=== PATIENT | male | born 1950 | race Caucasian/White ===

== ENCOUNTER 2021-02-23 07:12 | Emergency (ER) | payer BC, MEDICARE ==
[~2021-02-23] VITALS: Ht 177.8 cm; Wt 72.7 kg
[2021-02-23] MEDS ORDERED: IV NORMAL SALINE 1000ML BAG 1,000 ML IV SCH (08:15)
--- NOTE | 2021-02-23 08:39 | RAD ---
INDICATION: Reason: abd pain / Spl. Instructions: / History: COMPARISON: None. FINDINGS: Single view of chest obtained. Cardiomediastinal silhouette is unremarkable. Angulation of some of the right lower ribs including th e eighth, ninth and 10th again seen and could be from old fracture. Nodular opacities at chest bases. No definite consolidation elsewhere in the lungs. Nodular opacities at the bilateral lower lung coul d be secondary to overlap of structures IMPRESSION: * Similar appearance of the chest compared to prior without a new region of consolidation. Electronically signed by: Montrell Zamora MD (02/23/2021 8:37 AM) [id number]
[2021-02-23 08:40] LABS: BASO # 0.1 x10^3/uL (0.0-0.2); BASO % 1 % (0-3); EOS # 0.7 x10^3/uL (0.0-0.7); EOS % 7 % (0-3); HEMATOCRIT 41.9 % (39.0-53.0); HEMOGLOBIN 14.1 g/dL (13.0-17.5); LYMPH # 0.8 x10^3/uL (1.0-4.8); LYMPH % 9 % (24-48); MEAN CORPUSCULAR HEMOGLOBIN 34 pg (25-35); MEAN CORPUSCULAR HGB CONC 34 g/dL (31-37); MEAN CORPUSCULAR VOLUME 100 fL (79-100); MONO % 10 % (0-9); NEUT % 73 % (31-73); PLATELET COUNT 254 x10^3/uL (140-400); RED BLOOD COUNT 4.21 x10^6/uL (4.30-5.70); RED CELL DISTRIBUTION WIDTH 13.3 % (11.5-14.5); WHITE BLOOD COUNT 9.5 x10^3/uL (4.0-11.0)
[2021-02-23 08:42] LABS: BILIRUBIN,URINE NEGATIVE (NEG); CLARITY,URINE CLEAR; COLOR,URINE YELLOW; NITRITE,URINE NEGATIVE (NEG); PH,URINE 7.5 (<5.0-8.0); PROTEIN,URINE NEGATIVE (NEG-TRACE)
[2021-02-23 08:51] LABS: CALCIUM 8.2 mg/dL (8.5-10.1); CREATININE 0.8 mg/dL (0.7-1.3); GFR 95.8; POTASSIUM 3.8 mmol/L (3.5-5.1)
[2021-02-23 08:52] LABS: BACTERIA,URINE 0 /HPF (0-FEW); BARBITURATES NEG (NEG); BENZODIAZEPINES NEG (NEG); CANNABINOIDS NEG (NEG); COCAINE NEG (NEG); METHADONE NEG (NEG); OPIATES POS (NEG); PHENCYCLIDINE NEG (NEG); RBC,URINE 0 /HPF (0-2); WBC,URINE OCC /HPF (0-4)
[2021-02-23 08:58] LABS: ALBUMIN 3.6 g/dL (3.4-5.0); DIRECT BILIRUBIN 0.3 mg/dL (0.0-0.2); TOTAL BILIRUBIN 1.2 mg/dL (0.2-1.0); TOTAL PROTEIN 7.4 g/dL (6.4-8.2)
[2021-02-23 08:59] LABS: AMPHETAMINE/METHAMPHETAMINE NEG (NEG)
--- NOTE | 2021-02-23 10:53 | PHYS DOC ---
Past Medical History Past Medical History: Diverticulitis, GERD Additional Past Medical Histor: RA, HERNIA, Past Surgical History: Other Additional Past Surgical Histo: HERNIA REPAIR, SINUS SURGERY, Smoking Status: Current Every Day Smoker Alcohol Use: Occasionally General Adult EDM: Chief Complaint: ABDOMINAL PAIN HPI: HPI: 70-year-old male presents the ED with his (who aids in providing history), complaints of vague upper abdominal pain and is concerned this is a complication from his prior admission ([facility] )after history of complicated diverticulitis with abscess such that patient developed a fistula. Patient was discharged approximately 10 days ago and is on oral antibiotics. Review of Systems: Review of Systems: Constitutional: Denies fever or chills. [] Eyes: Denies change in visual acuity. [] HENT: Denies nasal congestion or sore throat. [] Respiratory: Denies cough or shortness of breath or hemoptysis Cardiovascular: Denies chest pain or edema. [] GI: Denies nausea, vomiting, bloody stools or diarrhea. [] : Denies dysuria. [] Musculoskeletal: Denies back pain or joint pain. [] Integument: Denies rash or diaphoresis Neurologic: Denies headache, focal weakness or sensory changes. [] Endocrine: Denies polyuria or polydipsia. [] Lymphatic: Denies swollen glands. [] Psychiatric: Denies depression or anxiety. [] Heart Score: C/O Chest Pain: No Risk Factors: Risk Factors: DM, Current or recent (<one month) smoker, HTN, HLP, family history of CAD, obesity. Risk Scores: Score 0 - 3: 2.5% MACE over next 6 weeks - Discharge Home Score 4 - 6: 20.3% MACE over next 6 weeks - Admit for Clinical Observation Score 7 - 10: 72.7% MACE over next 6 weeks - Early Invasive Strategies Current Medications: Current Medications Medications (Trade) Dose Ordered Sig/Genevieve Start Time Stop Time Status Last Admin Dose Admin Sodium Chloride 1,000 ml @ 1,000 mls/hr Q1H 02/23/21 08:15 02/23/21 09:14 DC 02/23/21 08:19 1,000 MLS/HR Allergies: Allergies: Allergies Coded Allergies Type Severity Reaction Last Updated Verified Penicillins Allergy Intermediate 02/23/21 Yes Physical Exam: PE: Constitutional: Well developed, well nourished, no acute distress, non-toxic appearance. HENT: Normocephalic, atraumatic, Eyes: EOMI, conjunctiva normal, no discharge. Neck: Normal range of motion, supple, Cardiovascular: S1/2 present, regular rhythm Lungs & Thorax: Speaking in full sentences, bilateral equal chest rise, no tachypnea or increased work of breathing Abdomen: soft, no tenderness, no rigidity or guarding or peritonitis Skin: Warm, dry, no erythema, no rash. [] Back: No tenderness, no CVA tenderness. [] Extremities: No tenderness, no cyanosis, no lower extremity edema Neurologic: Alert and oriented X 3, normal motor function, normal sensory function, no focal deficits noted. [] Psychologic: Affect normal, judgement normal, mood normal. [] Current Patient Data: Labs: Laboratory Tests Test 02/23/21 07:20 02/23/21 07:30 Urine Collection Type Unknown Urine Color Yellow Urine Clarity Clear Urine pH 7.5 (<5.0-8.0) Urine Specific Kite 1.015 (1.000-1.030) Urine Protein Negative mg/dL (NEG-TRACE) Urine Glucose (UA) Negative mg/dL (NEG) Urine Ketones (Stick) Negative mg/dL (NEG) Urine Blood Negative (NEG) Urine Nitrite Negative (NEG) Urine Bilirubin Negative (NEG) Urine Urobilinogen Dipstick 1.0 mg/dL (0.2 mg/dL) Urine Leukocyte Esterase Negative (NEG) Urine RBC 0 /HPF (0-2) Urine WBC Occ /HPF (0-4) Urine Squamous Epithelial Cells Occ /LPF Urine Bacteria 0 /HPF (0-FEW) Urine Mucus Mod /LPF Urine Opiates Screen Pos (NEG) Urine Methadone Screen Neg (NEG) Urine Barbiturates Neg (NEG) Urine Phencyclidine Screen Neg (NEG) Urine Amphetamine/Methamphetamine Neg (NEG) Urine Benzodiazepines Screen Neg (NEG) Urine Cocaine Screen Neg (NEG) Urine Cannabinoids Screen Neg (NEG) Urine Ethyl Alcohol Neg (NEG) White Blood Count 9.5 x10^3/uL (4.0-11.0) Red Blood Count 4.21 x10^6/uL (4.30-5.70) L Hemoglobin 14.1 g/dL (13.0-17.5) Hematocrit 41.9 % (39.0-53.0) Mean Corpuscular Volume 100 fL (79-100) Mean Corpuscular Hemoglobin 34 pg (25-35) Mean Corpuscular Hemoglobin Concent 34 g/dL (31-37) Red Cell Distribution Width 13.3 % (11.5-14.5) Platelet Count 254 x10^3/uL (140-400) Neutrophils (%) (Auto) 73 % (31-73) Lymphocytes (%) (Auto) 9 % (24-48) L Monocytes (%) (Auto) 10 % (0-9) H Eosinophils (%) (Auto) 7 % (0-3) H Basophils (%) (Auto) 1 % (0-3) Neutrophils # (Auto) 7.0 x10^3/uL (1.8-7.7) Lymphocytes # (Auto) 0.8 x10^3/uL (1.0-4.8) L Monocytes # (Auto) 1.0 x10^3/uL (0.0-1.1) Eosinophils # (Auto) 0.7 x10^3/uL (0.0-0.7) Basophils # (Auto) 0.1 x10^3/uL (0.0-0.2) Prothrombin Time 12.0 SEC (11.7-14.0) Prothrombin Time INR 0.9 (0.8-1.1) Activated Partial Thromboplast Time 31 SEC (24-38) Sodium Level 140 mmol/L (136-145) Potassium Level 3.8 mmol/L (3.5-5.1) Chloride Level 103 mmol/L (98-107) Carbon Dioxide Level 29 mmol/L (21-32) Anion Gap 8 (6-14) Blood Urea Nitrogen 8 mg/dL (8-26) Creatinine 0.8 mg/dL (0.7-1.3) Estimated GFR (Cockcroft-Gault) 95.8 Glucose Level 86 mg/dL (70-99) Calcium Level 8.2 mg/dL (8.5-10.1) L Total Bilirubin 1.2 mg/dL (0.2-1.0) H Direct Bilirubin 0.3 mg/dL (0.0-0.2) H Aspartate Amino Transferase (AST) 14 U/L (15-37) L Alanine Aminotransferase (ALT) 15 U/L (16-63) L Alkaline Phosphatase 76 U/L (46-116) Creatine Kinase 38 U/L (39-308) L Troponin I Quantitative < 0.017 ng/mL (0.000-0.055) Total Protein 7.4 g/dL (6.4-8.2) Albumin 3.6 g/dL (3.4-5.0) Lipase 68 U/L (73-393) L Laboratory Tests 02/23/21 07:30 Laboratory Tests 02/23/21 07:30 Vital Signs: Vital Signs Date Time Temp Pulse Resp B/P (MAP) Pulse Ox O2 Delivery O2 Flow Rate FiO2 02/23/21 07:17 98.7 62 18 113/64 (80) 97 Room Air 98.7 EKG: EKG: Sinus rhythm 59 bpm, left axis deviation, normal intervals, T wave inversion in lead III and V5, no ST elevations or ST depressions Radiology/Procedures: Radiology/Procedures: IMAGING REPORT Signed PATIENT: DENVER LADD ACCOUNT: [id number] : 1950 LOCATION: ER AGE: 70 SEX: M EXAM STATUS: REG ER ORD. PHYSICIAN: NELSY PAGE DO REASON: abd pain PROCEDURE: PORTABLE CHEST 1V INDICATION: Reason: abd pain / Spl. Instructions: / History: COMPARISON: None. FINDINGS: Single view of chest obtained. Cardiomediastinal silhouette is unremarkable. Angulation of some of the right lower ribs including the eighth, ninth and 10th again seen and could be from old fracture. Nodular opacities at chest bases. No definite consolidation elsewhere in the lungs. Nodular opacities at the bilateral lower lung could be secondary to overlap of structures IMPRESSION: * Similar appearance of the chest compared to prior without a new region of consolidation. Electronically signed by: Henry Maddox MD (02/23/2021 8:37 AM) [id number] DICTATED and SIGNED BY: HENRY MADDOX MD DATE: 02/23/21 [id number] 0 IMAGING REPORT Signed PATIENT: WILBERTO,DENVER R ACCOUNT: [id number] : 1950 LOCATION: ER AGE: 70 SEX: M EXAM STATUS: REG ER ORD. PHYSICIAN: NELSY PAGE DO REASON: abd pain PROCEDURE: CT ABD PELV W/ IV CONTRST ONLY PQRS Compliance Statement: One or more of the following individualized dose reduction techniques were utilized for this examination: 1. Automated exposure control 2. Adjustment of the mA and/or kV according to patient size 3. Use of iterative reconstruction technique CT abdomen/pelvis with contrast 02/23/2021 10:43 AM INDICATION: Abdominal pain COMPARISON: CT abdomen/pelvis 03/14/2020 TECHNIQUE: Multiple axial CT images of the abdomen and pelvis were obtained after the intravenous administration of 75 mL Omnipaque 300. Coronal and sagittal reformats are provided. FINDINGS: There is a 11 mm solid noncalcified pulmonary nodule in the subpleural posterior left lower lobe (series 2, image 5). Heart size within normal limits. Liver, spleen, adrenal glands, pancreas and gallbladder are normal in appearance. Abdominal aorta is tortuous, normal in caliber with moderate calcified atheromatous plaque. There are no pathologically enlarged lymph nodes in abdomen and pelvis. There is no free fluid or free intraperitoneal air. The kidneys enhance symmetrically. There is no suspicious renal mass. There is no hydronephrosis. There are no suspected calculi within the kidneys, ureters or urinary bladder. Mild bladder wall thickening identified along the superior margin of the bladder. Prostate and seminal vesicles are normal in appearance. There is circumferential wall thickening involving the rectosigmoid junction involving a long segment measuring up to 8.3 cm. There is advanced diverticulosis. There may be minimal inflammation along the left lateral distal sigmoid colon. Appendix is not definitively visualized. No pericecal inflammatory changes are identified. No significant mesorectal lymphadenopathy. No suspicious osseous abnormality is identified. IMPRESSION: Circumferential wall thickening with minimal associated inflammation identified involving the rectosigmoid junction in an area of diverticulosis. Consideration may be given for diverticulitis. Correlation with direct visualization could be of benefit to assess for mucosal mass given long segment of circumferential wall thickening. There is mild bladder wall thickening along the superior margin the bladder which could be chronic and associated with adjacent recurrent diverticulitis. Electronically signed by: Humberto Lawton MD (02/23/2021 11:30 AM) [id number] DICTATED and SIGNED BY: HUMBERTO LAWTON MD DATE: 02/23/21 [id number] 0 Course & Med Decision Making: Course & Med Decision Making Pertinent Labs and Imaging studies reviewed. (See chart for details) Lengthy ED stay and/or due to volume in ED, acuity of critical pts and ED staffing during a pandemic. The patient has decided to leave our facility against medical advice. I have assessed patient's ability to make informed decision and feel the patient has the capacity to comprehend information regarding the current medical condition and appreciates the impact of the disease or condition and the consequences of various options for treatment, including foregoing treatment. The patient possesses the ability to evaluate all treatment options, comparing the risks and benefits of each option, communicate his or her choice in a consistent manner over time, and is able to make rational choices. I explained to the patient further testing, treatment, and evaluation I would like to perform in the emergency department visit as well as any possible alternatives that can be accomplished in a timely manner. I have outlined the possible risks of foregoing any or all of these interventions and the patient understands and acknowledges that the decision to leave may result in undesirable consequences such as , permanent disability, and/or loss of current lifestyle. Even though leaving AMA is not ideal, pt still refused discharge papers. This conversation was witnessed by another member of the emergency department staff and we clearly communicated the patient is welcome to return anytime to continue care at our facility. Tommie Disclaimer: Tommie Disclaimer: This electronic medical record was generated, in whole or in part, using a voice recognition dictation system. Departure Departure Impression: Primary Impression: Abdominal pain Additional Impression: Left against medical advice Disposition: LEFT AGAINST MEDICAL ADVICE Condition: STABLE Referrals: VARGHESE HOWARD MD (PCP) NELSY PAGE DO February 23, 2021 10:52
[2021-02-23] MEDS ORDERED: CONTRAST GIVEN. MC PRN (11:00)
[2021-02-23] MEDS ORDERED: IOHEXOL 300 MG/ML 100ML VIAL. IV ONE (11:00)
--- NOTE | 2021-02-23 11:32 | RAD ---
PQRS Compliance Statement: One or more of the following individualized dose reduction techniques were utilized for this examinat ion: 1. Automated exposure control 2. Adjustment of the mA and/or kV according to patient size 3. Use of iterative reconstruction technique CT abdomen/pelvis with contrast 02/23/2021 10:43 AM INDICATION: Abdominal pain COMPARISON: CT abdomen/pelvis 03/14/2020 TECHNIQUE: Multiple axial CT images of the abdomen and pelvis were obtained after the intravenous adm inistration of 75 mL Omnipaque 300. Coronal and sagittal reformats are provided. FINDINGS: There is a 11 mm solid noncalcified pulmonary nodule in the subpleural posterior left lower lobe (ser ies 2, image 5). Heart size within normal limits. Liver, spleen, adrenal glands, pancreas and gallbladder are normal in appearance. Abdominal aorta is tortuous, normal in caliber with moderate calcified atheromatous plaque. There are no pathologically enlarged lymph nodes in abdomen and pelvis. There is no free fluid or free intraperitoneal air. The k idneys enhance symmetrically. There is no suspicious renal mass. There is no hydronephrosis. There ar e no suspected calculi within the kidneys, ureters or urinary bladder. Mild bladder wall thickening i dentified along the superior margin of the bladder. Prostate and seminal vesicles are normal in appea andrez. There is circumferential wall thickening involving the rectosigmoid junction involving a long segment measuring up to 8.3 cm. There is advanced diverticulosis. There may be minimal inflammation along th e left lateral distal sigmoid colon. Appendix is not definitively visualized. No pericecal inflammato ry changes are identified. No significant mesorectal lymphadenopathy. No suspicious osseous abnormality is identified. IMPRESSION: Circumferential wall thickening with minimal associated inflammation identified involving the rectosi gmoid junction in an area of diverticulosis. Consideration may be given for diverticulitis. Correlati on with direct visualization could be of benefit to assess for mucosal mass given long segment of cir cumferential wall thickening. There is mild bladder wall thickening along the superior margin the bladder which could be chronic an d associated with adjacent recurrent diverticulitis. Electronically signed by: Lucero Mejia MD (02/23/2021 11:30 AM) [id number]
[2021-02-23 12:30] VITALS: BP 120/76
--- NOTE | 2021-02-23 17:43 | EKG ---
[facility] [address] [place] [address] Test Date: 2021-02-23 Test Time: 08:22:37 Pat Name: DENVER LADD Department: Room: Gender: M Wood Chopper: : 1950 Requested By: NELSY PAGE Order Number: [id number] Reading MD: Measurements Intervals [place] Rate: 59 P: 66 CA: 158 QRS: -46 QRSD: 82 T: -25 QT: 396 QTc: 396 Interpretive Statements SINUS RHYTHM ABNORMAL LEFT AXIS DEVIATION LOW LIMB LEAD VOLTAGE QRS(T) CONTOUR ABNORMALITY CONSISTENT WITH ANTEROSEPTAL INFARCT PROBABLY OLD ABNORMAL ECG RI6.02 No previous ECG available for comparison
== END 2021-02-23 13:05 | disposition left against medical advice (07) ==
LOC: ER 07:12
DX: R10.10 Upper abdominal pain, unspecified (principal); K21.9 Gastro-esophageal reflux disease without esophagitis; F17.200 Nicotine dependence, unspecified, uncomplicated; Z88.0 Allergy status to penicillin
CPT/HCPCS: 36415; 71045; 74177; 80048; 80076; 80307; 81001; 82550; 83690; 84484; 85025; 85610; 85730; 93005; 96360; 99285; J7030; Q9967

== ENCOUNTER → 2021-04-01 | Day surgery (SDC) | payer BC, MEDICARE ==
[~2021-04-01] VITALS: Ht 180.3 cm; Wt 151.0 kg
[~2021-04-01] MED LIST: FAMO40TA57 PO; IV RINGERS,LACTATED 1000ML 1,000 ML IV ONE; IV RINGERS,LACTATED 1000ML 1,000 ML IV SCH; LIDOCAINE 2% PF 5 ML VIAL. ONE; PANT20TA2 PO; PROPOFOL 10 MG/ML (20ML) VIAL. IV ONE; TAMS0.4C97 PO; [UNRECOGNIZED DRUG - CODE] SQ
[2021-04-01 06:53] VITALS: BP 124/70
[2021-04-01 08:28] VITALS: BP 134/62
--- NOTE | 2021-04-02 17:43 | PATHOLOGY ---
[facility] Accession Number: [id number] . 01 Material submitted: . stomach - GASTRIC BIOPSY. Modifiers: GASTRIC . 01 Clinical history: . ABDOMINAL PAIN EGD EPI, PAIN . 02 Diagnosis: Gastric biopsies: - Superficial congestion and no significant inflammation. (JPM:pit; 04/02/2021) [facility] 04/02/2021 1402 Local . 02 Comment: Sections of the gastric biopsy reveal segments of gastric body and antral/body transition mucosa showing superficial congestion. There is no significant inflammation. A properly controlled immunoperoxidase stain for Helicobacter is negative for Helicobacter organisms. (JPM:pit; 04/02/2021) . Special stain performed: Immunoperoxidase stain for Helicobacter . 02 Electronically signed: . Mac Lucas MD, Pathologist NPI- [id number] . 01 Gross description: . Received in formalin labeled "Andrew Jurado and gastric biopsy". Received are 4 joel-brown soft tissue fragments ranging from 0.3-0.4 cm. The specimen is entirely submitted in cassette A1.([facility]; 04/01/2021) [facility] 04/01/2021 2018 Local . 02 Pathologist provided ICD-10: R10.9 . 02 CPT . 914874, G84611 Specimen Comment: A courtesy copy of this report has been sent to [phone], [phone] Specimen Comment: [id number] Specimen Comment: Report sent to / DR HOWARD Performed at: 01 [facility] [address], [place], [place] [id number] MD Beau Browning MD Phone: [phone] Performed at: [facility] [address] [place], [place] [id number] MD Mac Lucas MD Phone: [phone]
== END | disposition home or self-care (01) ==
LOC: SURG 06:22
PROVIDERS: ATTEND Internal Medicine Gastroenterology
DX: R10.13 Epigastric pain (principal); R10.10 Upper abdominal pain, unspecified; K29.50 Unspecified chronic gastritis without bleeding; K31.89 Other diseases of stomach and duodenum; M06.9 Rheumatoid arthritis, unspecified; N40.0 Benign prostatic hyperplasia without lower urinary tract symptoms; F17.210 Nicotine dependence, cigarettes, uncomplicated; Z79.899 Other long term (current) drug therapy; Z98.890 Other specified postprocedural states; Z72.89 Other problems related to lifestyle; Z88.0 Allergy status to penicillin
CPT/HCPCS: 43239; 88305; 88342; J2704; 43235

== ENCOUNTER 2021-05-26 08:11 | Day surgery (SDC) | payer BC, MEDICARE ==
[2021-05-25 09:40] VITALS: BP 134/62
[~2021-05-26] VITALS: Ht 177.8 cm; Wt 66.0 kg
[~2021-05-26 08:11] MED LIST changes: +HEPARIN 1,000 UNIT in IV NORMAL SALINE 1,000 ML for SURG PERIOP IRR ONE; +HYDROmorphone 2 MG/ML VIAL IVP PRN; -IV RINGERS,LACTATED 1000ML 1,000 ML IV ONE; -IV RINGERS,LACTATED 1000ML 1,000 ML IV SCH; -LIDOCAINE 2% PF 5 ML VIAL. ONE; +MORPHINE SULFATE 2 MG/ML INJ. IVP PRN; +MULT-121 PO; +PROCHLORPERAZINE 10 MG/2 ML VIAL. IVP PRN; -PROPOFOL 10 MG/ML (20ML) VIAL. IV ONE; +fentaNYL PF VIAL 100 MCG/2 ML VIAL IVP PRN
[2021-05-26 08:36] VITALS: BP 122/68
[2021-05-26] MEDS: IV RINGERS,LACTATED 1000ML 1,000 ML IV SCH ×2 (08:41→12:19)
--- NOTE | 2021-05-26 08:56 | PDOC1 ---
History and Physical Date of Admission Date of Admission DATE: 05/26/21 TIME: 08:50 Identification/Chief Complaint Chief Complaint epigastric abd pain Source Source: Chart review, Patient History of Present Illness History of Present Illness 70 yo M with c/o epigastric abd pain, intermittent. PIPPDA elevated with 95% ejection. Previous history of complicated diverticulitis, but this is currently quiet. Timbo diet, passing stools and urine without difficulty. Past Medical History Rheumatologic: Rheumatoid arthritis Renal/: Benign prostatic enlarg., Bladder Ca. Past Surgical History Past Surgical History: Appendectomy, Other (shoulder surgery) Family History Family History: Cancer Social History Smoke: 1 pack per day ALCOHOL: heavy Current Medications Current Medications Current Medications Heparin Sodium (Porcine) 1000 unit/Sodium Chloride 1,001 ml @ 1,001 mls/hr 1X ONCE IRR ; Start 05/26/21 at 06:00; Stop 05/26/21 at 06:59; Status DC Fentanyl Citrate (Fentanyl 2ml Vial) 25 mcg PRN Q5MIN PRN IVP MILD PAIN 1-3; Start 05/26/21 at 06:00; Stop 05/27/21 at 05:59 Fentanyl Citrate (Fentanyl 2ml Vial) 50 mcg PRN Q5MIN PRN IVP MODERATE PAIN 4- 6; Start 05/26/21 at 06:00; Stop 05/27/21 at 05:59 Morphine Sulfate (Morphine Sulfate) 1 mg PRN Q10MIN PRN IVP SEVERE PAIN 7-10; Start 05/26/21 at 06:00; Stop 05/27/21 at 05:59 Ringer's Solution 1,000 ml @ 30 mls/hr Q24H IV Last administered on 05/26/21at 08:41; Start 05/26/21 at 06:00; Stop 05/26/21 at 17:59 Hydromorphone HCl (Dilaudid) 0.5 mg PRN Q10MIN PRN IVP SEVERE PAIN 7-10, 2nd CHOICE; Start 05/26/21 at 06:00; Stop 05/27/21 at 05:59 Prochlorperazine Edisylate (Compazine) 5 mg PACU PRN PRN IVP NAUSEA, MRX1; Start 05/26/21 at 06:00; Stop 05/27/21 at 05:59 Cefazolin Sodium/ Dextrose 50 ml @ 100 mls/hr 1X PREOP PRN IV PRIOR TO PROCEDURE; Start 05/26/21 at 08:00; Stop 05/27/21 at 07:59 Active Scripts Active Reported Multiple Vitamins (Multivitamin) 1 Each Tablet 1 Tab PO DAILY 30 Days Pepcid (Famotidine) 40 Mg Tablet 40 Mg PO HS Protonix (Pantoprazole Sodium) 20 Mg Tablet.dr 20 Mg PO DAILY Enbrel (Etanercept) 25 Mg/0.5 Ml Vial 25 Mg SQ WEEKLY Flomax (Tamsulosin Hcl) 0.4 Mg Cap.er.24h 0.4 Mg PO DAILY Allergies Allergies: Coded Allergies: Penicillins (Verified Allergy, Intermediate, 05/26/21) ROS Gastrointestinal: Yes Abdominal Pain Physical Exam General: Alert, Cooperative, No acute distress HEENT: Atraumatic Lungs: Normal air movement Abdomen: Soft, Other (mild TTP epigastric) Extremities: No clubbing, No cyanosis Neuro: Normal speech, Sensation intact Psych/Mental Status: Mood NL Vitals Vitals Vital Signs Date Time Temp Pulse Resp B/P (MAP) Pulse Ox O2 Delivery O2 Flow Rate FiO2 05/26/21 08:36 98.1 51 20 97 98.1 05/26/21 08:26 122/68 Room Air VTE Prophylaxis Ordered VTE Prophylaxis Devices: Yes VTE Pharmacological Prophylaxi: Contraindicated Assessment/Plan Assessment/Plan biliary dyskinesia, epigastric abd pain TO OR for laparoscopic versus open exploration, cholecystectomy with cholangiogram. R/R/B/A d/w pt and pt's supportive family. Risks, including, but not limited to: bleeding, infection, damage to surrounding structures, risk of anesthesia, risk of open, risk of not resolving symptoms. They appear to understand, their questions are answered and they elect to proceed. Justifications for Admission Other Justification HAZEL BREWER MD May 26, 2021 08:56
--- NOTE | 2021-05-26 09:11 | EKG ---
[facility] [address] [place] [address] Test Date: 2021-05-26 Test Time: 09:10:26 Pat Name: DENVER LADD Department: Room: Gender: M Neurosurgical Nurse: DIPESH : 1950 Requested By: ASHLEE FONTAINE Order Number: [id number] Reading MD: Ulisses Art Measurements Intervals [place] Rate: 44 P: 90 ND: 166 QRS: -62 QRSD: 80 T: -47 QT: 474 QTc: 405 Interpretive Statements SINUS BRADYCARDIA ABNORMAL LEFT AXIS DEVIATION LOW LIMB LEAD VOLTAGE SEPTAL Q WAVE CONSISTENT WITH POSSIBLE OLD ANTEROSEPTAL INFARCT Electronically Signed On 05-26-2021 12:02:46 CDT by Ulisses Art
[2021-05-26] MEDS ORDERED: PROPOFOL 10 MG/ML (20ML) VIAL. IV ONE (09:46)
[2021-05-26] MEDS ORDERED: LIDOCAINE 2% PF 5 ML VIAL. ONE (09:46)
[2021-05-26] MEDS ORDERED: PHENYLEPHRINE in 0.9% NACL PF 1 MG/10 ML SYRINGE. IV ONE (09:46)
[2021-05-26] MEDS ORDERED: ONDANSETRON PF 4 MG/2 ML VIAL. ONE (09:46)
[2021-05-26] MEDS ORDERED: DEXAMETHASONE SOD PHOS 4 MG/ML VIAL ONE (09:46)
[2021-05-26] MEDS ORDERED: MIDAZOLAM HCL/PF 2 MG/2 ML VIAL. ONE (09:47)
[2021-05-26] MEDS ORDERED: ROCURONIUM 50 MG/5 ML VIAL. ONE (09:47)
[2021-05-26] MEDS ORDERED: NEOSTIGMINE METHYLSULFATE 5 MG/5 ML SYRINGE. ONE (09:47)
[2021-05-26] MEDS ORDERED: GLYCOPYRROLATE 1 MG/5 ML VIAL. ONE (09:48)
[2021-05-26] MEDS ORDERED: SURGICEL HEMOSTAT 4X8 EACH. ONE (10:08)
[2021-05-26] MEDS ORDERED: BUPIVACAINE-EPI 0.5%-1:200000 MPF 30 ML VIAL. ONE (10:08)
[2021-05-26] MEDS ORDERED: IOHEXOL 300 MG/ML 50 ML VIAL. ONE (10:08)
[2021-05-26] MEDS ORDERED: BISACODYL 10 MG SUPP.RECT. ONE (10:08)
[2021-05-26] MEDS ORDERED: KETOROLAC 30 MG/ML VIAL. ONE (10:11)
[2021-05-26] MEDS ORDERED: fentaNYL PF VIAL 100 MCG/2 ML VIAL ONE ×3 (10:11→12:38)
[2021-05-26] MEDS ORDERED: KETAMINE HCL IN NACL, ISO-OSM 50 MG/5 ML SYRINGE ONE (10:21)
[2021-05-26] MEDS ORDERED: ePHEDrine PF IN SALINE 50 MG/10 ML SYRINGE. IV ONE (10:27)
--- NOTE | 2021-05-26 11:18 | RAD ---
EXAM: INTRAOPERATIVE CHOLANGIOGRAM. HISTORY: Gallbladder disease. Intraoperative cholangiogram with cholecystectomy. COMPARISON: None. FINDINGS: 3 fluoroscopic images are obtained intraoperatively during injection of the cystic duct rem nant after cholecystectomy. There are no filling defects to suggest retained stones. The common duct is not dilated. Fluoroscopy time 0.1 minutes. IMPRESSION: 1. No evidence of retained stones. Electronically signed by: Shyla Butler MD (05/26/2021 11:16 AM) [id number]
[2021-05-26] MEDS ORDERED: NALOXONE 0.4 MG/ML VIAL. IV PRN (11:30)
[2021-05-26] MEDS ORDERED: DEXTROSE 50% 25 GM / 50ML DISP.SYRIN. IV PRN (11:30)
[2021-05-26] MEDS ORDERED: IV NORMAL SALINE 1000ML BAG 1,000 ML IV SCH (11:30)
[2021-05-26] MEDS ORDERED: IV RINGERS,LACTATED 1000ML 1,000 ML IV SCH (11:30)
[2021-05-26] MEDS ORDERED: 0.9 % SODIUM CHLORIDE 10 ML DISP.SYRIN. IV PRN (11:30)
[2021-05-26] MEDS ORDERED: ONDANSETRON PF 4 MG/2 ML VIAL. IVP PRN (11:30)
[2021-05-26] MEDS ORDERED: HYDROcodone/APAP 5/325MG 1 TAB TABLET PO PRN (11:30)
[2021-05-26] MEDS ORDERED: KETOROLAC 30 MG/ML VIAL. IV PRN (11:30)
[2021-05-26] MEDS ORDERED: PROCHLORPERAZINE 10 MG/2 ML VIAL. ONE (11:32)
--- NOTE | 2021-05-26 11:32 | PDOC4 ---
OPERATIVE NOTE Date: Date: May 26, 2021 Pre-Op Diagnosis: Biliary dyskinesia Post-Op Diagnosis: same chronic cholecystitis Procedure Performed: laparoscopic cholecystectomy with cholangiogram Surgeon: Severiano Brewer Anesthesia Type: GETA plus local Blood Loss: 50 Specimans Obtained: gallbladder Findings: no evidence of pathology in pelvis, evidence of BIH mesh repairs, chronic benign adhesions in epigastric associated with complex scar, but no bowel involvement, normal liver, chronic scarring of gallbladder, normal cholangiogram Complications: none Operative Note: After obtaining informed consent, patient was taken to OR, induced under GETA and prepped in the usual fashion. 5 mm port placed umbilical and RUQ, 12 port placed epigastric, all under laparoscopic guidance. Abdominal cavity was explored and noted as above. Gallbladder taken off fossa in dome down fashion. Cystic artery ligated with clips. Cholangiogram obtained via cystic duct only structure remaining and was normal. Cystic duct controlled with clips and hemolok. Gallbladder placed in bag, delivered and sent to pathology. Copious irrigation. No evidence of bleeding or other pathology noted. Ports removed without bleeding. Fascia repaired with 0 vicryl. Skin repaired with 4 0 monocryl. Dressing placed. Patient tolerated procedure well and sent to PACU in stable condition. All counts correct. Wound class is 3. HAZEL BREWER MD May 26, 2021 11:32
[2021-05-26] MEDS: fentaNYL PF VIAL 100 MCG/2 ML VIAL IVP PRN ×4 (11:41→13:18)
[2021-05-26] MEDS ORDERED: HYDROmorphone 2 MG/ML VIAL ONE (14:18)
[2021-05-26] MEDS ORDERED: HYDROcodone/APAP 5/325MG 1 TAB TABLET PO ONE (14:30)
[2021-05-26] MEDS ORDERED: DOCU-109 PO (14:50)
[2021-05-26] MEDS ORDERED: HYDR-2761 PO (14:50)
[2021-05-26 15:00] VITALS: BP 125/65
[2021-05-26] MEDS ORDERED: DOCUSATE SODIUM 100 MG CAPSULE. PO SCH (21:00)
--- NOTE | 2021-05-27 15:07 | PATHOLOGY ---
[facility] Accession Number: [id number] . 01 Material submitted: . gallbladder - GALLBLADDER . 01 Clinical history: . BILIARY DYSKINESIA LAP CHOLECYSTECTOMY . 02 Diagnosis: Gallbladder, laparoscopic cholecystectomy: - Chronic cholecystitis, mild. . ([facility]:mm; 05/27/2021) [facility] 05/27/2021 1355 Local . 02 Comment: There are no calculi identified within the gallbladder lumen or specimen container. Sections of the gallbladder show congestion and very mild chronic inflammation. There is no evidence of malignancy. . ([facility]:mml; 05/27/2021) . 02 Electronically signed: . Mac Lucas MD, Pathologist NPI- [id number] . 01 Gross description: . Fixative: Formalin Labeled: Gallbladder Specimen received: Intact gallbladder Dimensions: 6.8 x 3.4 x 2.8 cm Serosa: Anahola-diaz Lymph node: None identified Mucosa: Velvety, red-brown Average wall thickness: 0.1 cm Calculi: None present Abnormalities: None identified . A1- Front End Developer body, fundus, and the cystic duct margin. ([facility]; 05/26/2021) NRI/NRI 05/26/2021 1523 Local . 02 Pathologist provided ICD-10: K81.1 . 02 CPT . 352364 Specimen Comment: A courtesy copy of this report has been sent to [phone] Specimen Comment: Report sent to / DR HOWARD Performed at: 01 [facility] [address], [place], [place] [id number] MD Beau Browning MD Phone: [phone] Performed at: 02 [facility] [address] [place], [place] [id number] MD Mac Lucas MD Phone: [phone]
== END 2021-05-26 15:54 | disposition home or self-care (01) ==
LOC: SURG 08:11
PROVIDERS: ATTEND Surgery
DX: K82.8 Other specified diseases of gallbladder (principal); K81.1 Chronic cholecystitis; M06.9 Rheumatoid arthritis, unspecified; J43.9 Emphysema, unspecified; K21.9 Gastro-esophageal reflux disease without esophagitis; Z85.51 Personal history of malignant neoplasm of bladder; F17.210 Nicotine dependence, cigarettes, uncomplicated; Z79.899 Other long term (current) drug therapy; Z98.890 Other specified postprocedural states
CPT/HCPCS: 47563; 74300; 93005; A4213; A4314; A4930; A6219; C1887; J0690; J0780; J1100; J1170; J1644; J1885; J2250; J2370; J2405; J2704; J2710; J3010; J3490; J7030; Q9967

== ENCOUNTER 2022-02-23 19:55 | Inpatient (IN) | payer MEDICARE, BC ==
[~2022-02-23] VITALS: Ht 180.3 cm; Wt 80.0 kg
[~2022-02-23 19:55] MED LIST changes: +DOCU-109 PO; -HEPARIN 1,000 UNIT in IV NORMAL SALINE 1,000 ML for SURG PERIOP IRR ONE; +HYDR-2761 PO; -HYDROmorphone 2 MG/ML VIAL IVP PRN; -MORPHINE SULFATE 2 MG/ML INJ. IVP PRN; -PROCHLORPERAZINE 10 MG/2 ML VIAL. IVP PRN; -fentaNYL PF VIAL 100 MCG/2 ML VIAL IVP PRN
[2022-02-23 20:15] VITALS: BP 122/64
[2022-02-23] MEDS ORDERED: diphenhydrAMINE HCL 25 MG CAPSULE PO PRN (21:00)
[2022-02-23] MEDS: IV NORMAL SALINE 1000ML BAG 1,000 ML IV SCH (21:37)
[2022-02-23] MEDS: HYDROmorphone 2 MG/ML INJ. IVP PRN (21:38)
--- NOTE | 2022-02-23 22:25 | HP ---
DATE OF SERVICE: 02/23/2022 ADMIT DATE: 02/23/2022 CHIEF COMPLAINT: Perforated diverticula. HISTORY OF PRESENT ILLNESS: The patient is a pleasant middle-aged male who presented with perforated diverticulitis. He went to [facility], he has now been transferred here. We are consulting General Surgery and gave him IV antibiotics. PAST MEDICAL HISTORY: Diverticulosis, BPH, chronic pain, arthritis, constipation, GERD. ALLERGIES: PENICILLIN. FAMILY HISTORY: Diabetes. SOCIAL HISTORY: Does not drink, smoke or take drugs. MEDICATIONS: Reviewed. He is on Flomax, hydrocodone, Colace, Pepcid, Protonix, vitamins and Enbrel. REVIEW OF SYSTEMS: GENERAL: No history of weight change, weakness or fevers. SKIN: No bruising, hair changes or rashes. EYES: No blurred, double or loss of vision. NOSE AND THROAT: No history of nosebleeds, hoarseness or sore throat. HEART: No history of palpitations, chest pain or shortness of breath on exertion. LUNGS: Denies cough, hemoptysis, wheezing or shortness of breath. ABDOMEN: He complains of abdominal pain. GENITOURINARY: No history of frequency, urgency, hesitancy or nocturia. NEUROLOGIC: Denies history of numbness, tingling, tremor or weakness. PSYCHIATRIC: No history of panic, anxiety or depression. ENDOCRINE: No history of heat or cold intolerance, polyuria or polydipsia. EXTREMITIES: Denies muscle weakness, joint pain, pain on walking or stiffness. PHYSICAL EXAMINATION: VITALS: Within normal limits and are stable. GENERAL: No apparent distress. Alert and oriented. HEENT: Normal cephalic atraumatic, external auditory canals are patent EYES: Extraocular muscles are intact, pupils are equally round and reactive to light and accommodation MUSCULOSKELETAL: Well developed, well nourished, good range of motion ENDOCRINE: No thyromegaly was palpated LYMPHATICS: No cervical chain or axillary nodes were noted HEMATOPOIETIC: No bruising NECK: Supple, no JVD, no thyromegaly was noted. LUNGS: Clear to auscultation in all lung mosley without rhonchi or wheezing. HEART: RRR, S1, S2 present. Peripheral pulses intact, no obvious murmurs were noted. ABDOMEN: He has decreased bowel sounds with some slight tenderness to palpation. EXTREMITIES: Without any cyanosis, clubbing, or edema. Pedal pulses intact, Homans sign is negative. NEUROLOGIC: Normal speech, normal tone. A and O x 3, moves all extremities, no obvious focal deficits. PSYCHIATRIC: Normal affect, normal mood. Stable. SKIN: No ulcerations or rashes, good skin turgor, no jaundice. VASCULAR: Good capillary refill, neurovascular bundle appears to be intact. LABORATORY DATA: Pending. ASSESSMENT AND PLAN: Perforated diverticulitis. The patient has been admitted. We will consult General Surgery. IV antibiotics. IV fluids. P.r.n. Zofran. P.r.n. Dilaudid. Home meds when possible. Deep venous thrombosis prophylaxis. Full code. I discussed the case with his RN. WENDY/KELSEY/DIVYA DR: Marisa TID: [id number]
[2022-02-23] MEDS ORDERED: diphenhydrAMINE 50 MG/ML VIAL IM ONE (22:30)
[2022-02-24] MEDS: PIPERACILLIN/TAZOBACTAM 3.375 GM in IV NORMAL SALINE 50ML 50 ML IV SCH ×4 (01:00→17:32)
[2022-02-24 03:00] VITALS: BP 121/74
[2022-02-24] MEDS: IV NORMAL SALINE 1000ML BAG 1,000 ML IV SCH (03:28)
[2022-02-24 07:00] VITALS: BP 129/68
[2022-02-24] MEDS: TAMSULOSIN 0.4 MG CAP.ER.24H. PO SCH (08:12)
[2022-02-24] MEDS: HYDROmorphone 2 MG/ML INJ. IVP PRN ×3 (08:14→20:06)
[2022-02-24] MEDS ORDERED: PIP/TAZO PER PHARMACY MC PRN (09:00)
[2022-02-24 11:00] VITALS: BP 108/58
--- NOTE | 2022-02-24 11:09 | NUR ---
SS following for discharge planning. SS reviewed pt chart and discussed with pt RN. Pt is from home with spouse and is currently on room air. Pt on IV Zosyn. Dr. Timmons consulted. NPO. SS will continue to follow for discharge planning.
[2022-02-24] MEDS ORDERED: PROCHLORPERAZINE 10 MG/2 ML VIAL. IV PRN (11:45)
[2022-02-24] MEDS ORDERED: diphenhydrAMINE HCL 25 MG CAPSULE PO PRN (11:45)
[2022-02-24] MEDS ORDERED: LORazepam 0.5 MG TABLET PO PRN (11:45)
[2022-02-24] MEDS ORDERED: DOCUSATE SODIUM 100 MG CAPSULE. PO PRN (11:45)
[2022-02-24] MEDS ORDERED: diphenhydrAMINE 50 MG/ML VIAL IVP PRN ×2 (11:45→21:00)
[2022-02-24] MEDS ORDERED: ONDANSETRON PF 4 MG/2 ML VIAL. IVP PRN (11:45)
[2022-02-24] MEDS: ACETAMINOPHEN 325 MG TABLET. PO PRN ×2 (11:49→20:05)
[2022-02-24 15:00] VITALS: BP 113/59
--- NOTE | 2022-02-24 15:17 | PDOC ---
[facility] [facility] PROGRESS NOTE Date of Service DOS: DATE: 02/24/22 TIME: 15:16 Chief Complaint Chief Complaint Acute diverticulitis History of Present Illness History of Present Illness 71-year-old male with history of diverticulosis, BPH, chronic pain and arthritis who comes in with diverticulitis. Transferred from [facility] for general surgery consult. Admitted for further care and IV antibiotics. 02/24/2022 No acute events overnight. Patient seen examined bedside. AF and VSS. Abdominal exam is benign. Patient is passing flatus no bowel movement. We will try small mount of clears. Awaiting general surgery evaluation. Continue with IV antibiotics and IV fluids. Patient's chart, labs, images were reviewed and discussed with RN Vitals/I&O Vitals/I&O: Vital Signs Date Time Temp Pulse Resp B/P (MAP) Pulse Ox O2 Delivery O2 Flow Rate FiO2 02/24/22 11:00 98.0 67 16 108/58 (75) 94 98.0 02/24/22 08:14 Room Air I & O 02/23/22 02/23/22 02/24/22 15:00 23:00 07:00 Intake Total 100 ml Balance 100 ml Physical Exam General: Alert, Oriented X3, Cooperative Heart: Regular rate Lungs: Clear Abdomen: Normal bowel sounds, No tenderness Extremities: No clubbing Comment Review of Relevant I have reviewed the following items ramona (where applicable) has been applied. Medications: Current Medications Medications (Trade) Dose Ordered Sig/Genevieve Route PRN Reason Start Time Stop Time Status Last Admin Dose Admin Hydromorphone HCl (Dilaudid) 1 mg PRN Q2HR PRN IVP SEVERE PAIN 7-10 02/23/22 21:00 02/24/22 08:14 Sodium Chloride 1,000 ml @ 75 mls/hr [id number] IV 02/23/22 21:00 02/24/22 03:28 Tamsulosin HCl (Flomax) 0.4 mg DAILY PO 02/24/22 09:00 02/24/22 08:12 Piperacillin Sod/ Tazobactam Sod 3.375 gm/Sodium Chloride 50 ml @ 100 mls/hr Q6HRS IV 02/24/22 01:00 02/24/22 11:49 Acetaminophen (Tylenol) 650 mg PRN Q4HRS PRN PO TEMP OVER 100.4F OR MILD PAIN 5/11/22 11:45 02/24/22 11:49 Justifications for Admission Other Justification MORIAH OGDEN MD February 24, 2022 15:17
--- NOTE | 2022-02-24 15:27 | PDOC2 ---
CONSULT Date of Consult Date of Consult DATE: 02/24/22 TIME: 15:24 Reason for Consult Reason for Consult: Recurrent diverticulitis Referring Physician Referring Physician: Dr. Sorenson Identification/Chief Complaint Chief Complaint LLQ abd pain Source Source: Caregiver, Chart review, Patient History of Present Illness Reason for Visit: 71 yo M presents to [facility] with LLQ abd pain, hx of previous hospitalization for diverticulitis. Pt feels better today. No N/v, passing flatus. Past Medical History GI: Diverticulosis, GERD Rheumatologic: Rheumatoid arthritis Renal/: Benign prostatic enlarg., Bladder Ca. Past Surgical History Past Surgical History: Appendectomy, Cholecystectomy, Other (pylorplasty as child) Family History Family History: Cancer Social History No ALCOHOL: heavy Current Medications Current Medications Current Medications Hydromorphone HCl (Dilaudid) 1 mg PRN Q2HR PRN IVP SEVERE PAIN 7-10 Last administered on 02/24/22at 15:19; Start 02/23/22 at 21:00 Diphenhydramine HCl (Benadryl) 50 mg PRN QHS PRN PO INSOMNIA; Start 02/23/22 at 21:00; Status Cancel Sodium Chloride 1,000 ml @ 75 mls/hr [id number] IV Last administered on 02/24/22at 03:28; Start 02/23/22 at 21:00 Piperacillin Sod/ Tazobactam Sod (Zosyn Per Pharmacy) 1 each PRN DAILY PRN MC SEE COMMENTS; Start 02/24/22 at 09:00 Tamsulosin HCl (Flomax) 0.4 mg DAILY PO Last administered on 02/24/22at 08:12; Start 02/24/22 at 09:00 Non-Formulary Medication (Etanercept (Enbrel)) 25 mg WEEKLY SQ ; Start 02/26/22 at 09:00; Status UNV Diphenhydramine HCl (Benadryl) 50 mg HS IVP ; Start 02/24/22 at 21:00; Stop 02/24/22 at 00:00; Status DC Diphenhydramine HCl (Benadryl) 50 mg 1X ONCE IM ; Start 02/23/22 at 22:30; Stop 02/23/22 at 22:31; Status DC Diphenhydramine HCl (Benadryl) 50 mg PRN QHS PRN IVP INSOMNIA; Start 02/24/22 at 21:00 Piperacillin Sod/ Tazobactam Sod 3.375 gm/Sodium Chloride 50 ml @ 100 mls/hr Q6HRS IV Last administered on 02/24/22at 11:49; Start 02/24/22 at 01:00 Sennosides (Senna) 17.2 mg PRN BID PRN PO CONSTIPATION; Start 02/24/22 at 11:45 Docusate Sodium (Colace) 100 mg PRN DAILY PRN PO HARD STOOLS; Start 02/24/22 at 11:45 Ondansetron HCl (Zofran) 4 mg PRN Q6HRS PRN IVP NAUSEA/VOMITING, 1st CHOICE; Start 02/24/22 at 11:45 Acetaminophen (Tylenol) 650 mg PRN Q4HRS PRN PO TEMP OVER 100.4F OR MILD PAIN Last administered on 02/24/22at 11:49; Start 02/24/22 at 11:45 Lorazepam (Ativan) 0.5 mg PRN Q6HRS PRN PO ANXIETY / AGITATION; Start 02/24/22 at 11:45 Lorazepam (Ativan Inj) 0.25 mg PRN Q4HRS PRN IV ANXIETY / AGITATION; Start 02/24/22 at 11:45 Prochlorperazine Edisylate (Compazine) 10 mg PRN Q6HRS PRN IV NAUSEA/VOMITING, 2nd CHOICE; Start 02/24/22 at 11:45 Diphenhydramine HCl (Benadryl) 25 mg PRN Q6HRS PRN IVP ITCHING; Start 02/24/22 at 11:45 Diphenhydramine HCl (Benadryl) 25 mg PRN Q6HRS PRN PO ITCHING; Start 02/24/22 at 11:45 Diphenhydramine HCl (Benadryl) 25 mg PRN QHS PRN PO INSOMNIA, 1st CHOICE; Start 02/24/22 at 11:45 Zolpidem Tartrate (Ambien) 2.5 mg PRN QHS PRN PO INSOMNIA, 2nd CHOICE; Start 02/24/22 at 11:45 Active Scripts Active Reported Colace (Docusate Sodium) 100 Mg Capsule 1 Cap PO BID 30 Days Hydrocodone-Apap 5-325 (Hydrocodone Bit/Acetaminophen) 1 Tab Tablet 1 Tab PO PRN PRN Multiple Vitamins (Multivitamin) 1 Each Tablet 1 Tab PO DAILY 30 Days Pepcid (Famotidine) 40 Mg Tablet 40 Mg PO HS Protonix (Pantoprazole Sodium) 20 Mg Tablet.dr 20 Mg PO DAILY Enbrel (Etanercept) 25 Mg/0.5 Ml Vial 25 Mg SQ WEEKLY Flomax (Tamsulosin Hcl) 0.4 Mg Cap.er.24h 0.4 Mg PO DAILY Allergies Allergies: Coded Allergies: Penicillins (Verified Allergy, Intermediate, 05/26/21) ROS Gastrointestinal: Yes Abdominal Pain, Yes Constipation Physical Exam General: Alert, Oriented X3, Cooperative, No acute distress HEENT: Atraumatic Lungs: Normal air movement Abdomen: Soft, No tenderness Extremities: No clubbing, No cyanosis Skin: No rashes, No breakdown Neuro: Normal speech, Sensation intact Psych/Mental Status: Mental status NL, Mood NL Vitals VITALS Vital Signs Date Time Temp Pulse Resp B/P (MAP) Pulse Ox O2 Delivery O2 Flow Rate FiO2 02/24/22 11:00 98.0 67 16 108/58 (75) 94 98.0 02/24/22 08:14 Room Air Images Images [facility] at [facility] c/w diverticulitis Assessment/Plan Assessment/Plan Diverticulitis appears improved, will start soft, cont abx. no current surgical plans. Thanks for consult! HAZEL BREWER MD February 24, 2022 15:27
[2022-02-24 19:00] VITALS: BP 118/60
[2022-02-24] MEDS ORDERED: diphenhydrAMINE 50 MG/ML VIAL IVP SCH (21:00)
[2022-02-25] MEDS: PIPERACILLIN/TAZOBACTAM 3.375 GM in IV NORMAL SALINE 50ML 50 ML IV SCH ×5 (00:22→23:39)
[2022-02-25] MEDS: IV NORMAL SALINE 1000ML BAG 1,000 ML IV SCH ×2 (00:23→17:29)
[2022-02-25] MEDS: HYDROmorphone 2 MG/ML INJ. IVP PRN ×4 (06:03→21:59)
[2022-02-25 07:00] VITALS: BP 129/63
[2022-02-25 07:33] LABS: BASO # 0.1 x10^3/uL (0.0-0.2); BASO % 1 % (0-3); EOS # 0.1 x10^3/uL (0.0-0.7); EOS % 1 % (0-3); HEMATOCRIT 37.6 % (39.0-53.0); LYMPH # 0.5 x10^3/uL (1.0-4.8); LYMPH % 6 % (24-48); MEAN CORPUSCULAR HEMOGLOBIN 34 pg (25-35); MEAN CORPUSCULAR HGB CONC 34 g/dL (31-37); MEAN CORPUSCULAR VOLUME 100 fL (79-100); MONO # 0.6 x10^3/uL (0.0-1.1); MONO % 8 % (0-9); NEUT # 6.8 x10^3/uL (1.8-7.7); NEUT % 84 % (31-73); PLATELET COUNT 223 x10^3/uL (140-400); RED BLOOD COUNT 3.76 x10^6/uL (4.30-5.70); RED CELL DISTRIBUTION WIDTH 12.8 % (11.5-14.5); WHITE BLOOD COUNT 8.1 x10^3/uL (4.0-11.0)
[2022-02-25 07:50] LABS: CALCIUM 7.9 mg/dL (8.5-10.1); CREATININE 0.9 mg/dL (0.7-1.3); GFR 83.4; MAGNESIUM 1.8 mg/dL (1.8-2.4); PHOSPHORUS 2.7 mg/dL (2.6-4.7); POTASSIUM 4.1 mmol/L (3.5-5.1)
[2022-02-25] MEDS: TAMSULOSIN 0.4 MG CAP.ER.24H. PO SCH (08:34)
--- NOTE | 2022-02-25 09:20 | PDOC ---
GONZALO CARLISLE [employer] 02/25/22 0920: SURGICAL PROGRESS NOTE DATE: 02/25/22 TIME: 09:18 Subjective had more pain no nausea no fevers ROS: no chest pain, no SOA no cough Vital Signs Vital Signs Date Time Temp Pulse Resp B/P (MAP) Pulse Ox O2 Delivery O2 Flow Rate FiO2 02/25/22 07:00 98.2 60 18 129/63 (85) 93 Room Air 98.2 I&O Intake and Output 02/25/22 07:00 Intake Total 1538 ml Balance 1538 ml Intake Oral 840 ml IV Total 698 ml General: Alert, Oriented X3, Cooperative HEENT: Atraumatic, PERRLA Lungs: Clear to auscultation, Normal air movement Heart: Regular rate, Normal S1, Normal S2 Abdomen: Soft, Other (mild ttp lower abdomen ) Labs Laboratory Tests Test 02/25/22 06:30 White Blood Count 8.1 x10^3/uL (4.0-11.0) Red Blood Count 3.76 x10^6/uL (4.30-5.70) Hemoglobin 13.0 g/dL (13.0-17.5) Hematocrit 37.6 % (39.0-53.0) Mean Corpuscular Volume 100 fL (79-100) Mean Corpuscular Hemoglobin 34 pg (25-35) Mean Corpuscular Hemoglobin Concent 34 g/dL (31-37) Red Cell Distribution Width 12.8 % (11.5-14.5) Platelet Count 223 x10^3/uL (140-400) Neutrophils (%) (Auto) 84 % (31-73) Lymphocytes (%) (Auto) 6 % (24-48) Monocytes (%) (Auto) 8 % (0-9) Eosinophils (%) (Auto) 1 % (0-3) Basophils (%) (Auto) 1 % (0-3) Neutrophils # (Auto) 6.8 x10^3/uL (1.8-7.7) Lymphocytes # (Auto) 0.5 x10^3/uL (1.0-4.8) Monocytes # (Auto) 0.6 x10^3/uL (0.0-1.1) Eosinophils # (Auto) 0.1 x10^3/uL (0.0-0.7) Basophils # (Auto) 0.1 x10^3/uL (0.0-0.2) Sodium Level 135 mmol/L (136-145) Potassium Level 4.1 mmol/L (3.5-5.1) Chloride Level 100 mmol/L (98-107) Carbon Dioxide Level 25 mmol/L (21-32) Anion Gap 10 (6-14) Blood Urea Nitrogen 12 mg/dL (8-26) Creatinine 0.9 mg/dL (0.7-1.3) Estimated GFR (Cockcroft-Gault) 83.4 Glucose Level 87 mg/dL (70-99) Calcium Level 7.9 mg/dL (8.5-10.1) Phosphorus Level 2.7 mg/dL (2.6-4.7) Magnesium Level 1.8 mg/dL (1.8-2.4) Laboratory Tests Test 02/25/22 06:30 White Blood Count 8.1 x10^3/uL (4.0-11.0) Red Blood Count 3.76 x10^6/uL (4.30-5.70) Hemoglobin 13.0 g/dL (13.0-17.5) Hematocrit 37.6 % (39.0-53.0) Mean Corpuscular Volume 100 fL (79-100) Mean Corpuscular Hemoglobin 34 pg (25-35) Mean Corpuscular Hemoglobin Concent 34 g/dL (31-37) Red Cell Distribution Width 12.8 % (11.5-14.5) Platelet Count 223 x10^3/uL (140-400) Neutrophils (%) (Auto) 84 % (31-73) Lymphocytes (%) (Auto) 6 % (24-48) Monocytes (%) (Auto) 8 % (0-9) Eosinophils (%) (Auto) 1 % (0-3) Basophils (%) (Auto) 1 % (0-3) Neutrophils # (Auto) 6.8 x10^3/uL (1.8-7.7) Lymphocytes # (Auto) 0.5 x10^3/uL (1.0-4.8) Monocytes # (Auto) 0.6 x10^3/uL (0.0-1.1) Eosinophils # (Auto) 0.1 x10^3/uL (0.0-0.7) Basophils # (Auto) 0.1 x10^3/uL (0.0-0.2) Sodium Level 135 mmol/L (136-145) Potassium Level 4.1 mmol/L (3.5-5.1) Chloride Level 100 mmol/L (98-107) Carbon Dioxide Level 25 mmol/L (21-32) Anion Gap 10 (6-14) Blood Urea Nitrogen 12 mg/dL (8-26) Creatinine 0.9 mg/dL (0.7-1.3) Estimated GFR (Cockcroft-Gault) 83.4 Glucose Level 87 mg/dL (70-99) Calcium Level 7.9 mg/dL (8.5-10.1) Phosphorus Level 2.7 mg/dL (2.6-4.7) Magnesium Level 1.8 mg/dL (1.8-2.4) Problem List diverticulitis abx, bowel rest afebrile, normal wbc no surgical plans at this time Justicifation of Admission Dx: Justifications for Admission: Justification of Admission Dx: Yes Comments: diverticulitis HAZEL BREWER MD 02/25/22 1500: SURGICAL PROGRESS NOTE Assessment/Plan Pt seen and examined. Agree with Ms. Carlisle's note Pt with some mild pain abd soft, min TTP LLQ cont supportive care, appreciate GI evaluation GONZALO CARLISLE APRN February 25, 2022 09:20 HAZEL BREWER MD February 25, 2022 15:00
[2022-02-25] MEDS: ACETAMINOPHEN 325 MG TABLET. PO PRN (10:47)
[2022-02-25 11:00] VITALS: BP 132/70
--- NOTE | 2022-02-25 11:28 | PDOC ---
[facility] [facility] PROGRESS NOTE Date of Service DOS: DATE: 02/25/22 TIME: 11:26 Chief Complaint Chief Complaint Acute diverticulitis History of diverticulosis Tobacco use History of Present Illness History of Present Illness 71-year-old male with history of diverticulosis, BPH, chronic pain and arthritis who comes in with diverticulitis. Transferred from [facility] for general surgery consult. Admitted for further care and IV antibiotics. 02/24/2022 No acute events overnight. Patient seen examined bedside. AF and VSS. Abdom inal exam is benign. Patient is passing flatus no bowel movement. We will try small mount of clears. Awaiting general surgery evaluation. Continue with IV antibiotics and IV fluids. Patient's chart, labs, images were reviewed and discussed with RN 02/25/2022 No acute events overnight. Patient seen examined bedside. This morning had some more lower abdominal pain that was cramping in nature. This happened after he had some soft diet. I have transitioned back to clear liquid diet. Pending general surgery evaluation. Continued IV fluids and IV antibiotics. Patient endorses only passing some flatus and no bowel movement. Patient's chart, labs, images were reviewed and discussed with RN Vitals/I&O Vitals/I&O: Vital Signs Date Time Temp Pulse Resp B/P (MAP) Pulse Ox O2 Delivery O2 Flow Rate FiO2 02/25/22 08:00 Room Air 02/25/22 07:00 98.2 60 18 129/63 (85) 93 98.2 I & O 02/24/22 02/24/22 02/25/22 15:00 23:00 07:00 Intake Total 0 ml 998 ml 540 ml Balance 0 ml 998 ml 540 ml Physical Exam General: Alert, Oriented X3, Cooperative Heart: Regular rate, Normal S1, Normal S2 Lungs: Clear Abdomen: Soft, Other (mild ttp lower abdomen ) Extremities: No clubbing, No cyanosis Skin: No rashes, No breakdown Labs Labs: Laboratory Tests Test 02/25/22 06:30 White Blood Count 8.1 x10^3/uL (4.0-11.0) Red Blood Count 3.76 x10^6/uL (4.30-5.70) Hemoglobin 13.0 g/dL (13.0-17.5) Hematocrit 37.6 % (39.0-53.0) Mean Corpuscular Volume 100 fL (79-100) Mean Corpuscular Hemoglobin 34 pg (25-35) Mean Corpuscular Hemoglobin Concent 34 g/dL (31-37) Red Cell Distribution Width 12.8 % (11.5-14.5) Platelet Count 223 x10^3/uL (140-400) Neutrophils (%) (Auto) 84 % (31-73) Lymphocytes (%) (Auto) 6 % (24-48) Monocytes (%) (Auto) 8 % (0-9) Eosinophils (%) (Auto) 1 % (0-3) Basophils (%) (Auto) 1 % (0-3) Neutrophils # (Auto) 6.8 x10^3/uL (1.8-7.7) Lymphocytes # (Auto) 0.5 x10^3/uL (1.0-4.8) Monocytes # (Auto) 0.6 x10^3/uL (0.0-1.1) Eosinophils # (Auto) 0.1 x10^3/uL (0.0-0.7) Basophils # (Auto) 0.1 x10^3/uL (0.0-0.2) Sodium Level 135 mmol/L (136-145) Potassium Level 4.1 mmol/L (3.5-5.1) Chloride Level 100 mmol/L (98-107) Carbon Dioxide Level 25 mmol/L (21-32) Anion Gap 10 (6-14) Blood Urea Nitrogen 12 mg/dL (8-26) Creatinine 0.9 mg/dL (0.7-1.3) Estimated GFR (Cockcroft-Gault) 83.4 Glucose Level 87 mg/dL (70-99) Calcium Level 7.9 mg/dL (8.5-10.1) Phosphorus Level 2.7 mg/dL (2.6-4.7) Magnesium Level 1.8 mg/dL (1.8-2.4) Comment Review of Relevant I have reviewed the following items ramona (where applicable) has been applied. Medications: Current Medications Medications (Trade) Dose Ordered Sig/Genevieve Route PRN Reason Start Time Stop Time Status Last Admin Dose Admin Diphenhydramine HCl (Benadryl) 50 mg PRN QHS PRN IVP INSOMNIA 02/24/22 21:00 02/24/22 20:06 Acetaminophen (Tylenol) 650 mg PRN Q4HRS PRN PO TEMP OVER 100.4F OR MILD PAIN 02/24/22 11:45 02/25/22 10:47 Justifications for Admission Other Justification MORIAH OGDEN MD February 25, 2022 11:27
--- NOTE | 2022-02-25 13:33 | PDOC2 ---
SAMANTA THOMPSON 02/25/22 1333: GI CONSULT Date of Service: DATE: 02/25/22 TIME: 13:27 Reason For Consult: diverticulitis HPI: HPI: 71 y/o male seen w/ Dr. Lange. Ill for a couple weeks w/ lower abdominal discomfort, unable to eat and less frequent stooling at home. Sent from [facility] earlier this week for CT findings of sigmoid diverticulitis w/ perforation/early abscess. H/o perforated diverticulitis/abscess last year @ [facility]. Thinks had colonoscopy prior to this w/ Dr. Lange @ [facility]. indicates possible concern for bladder fistula? Recently has had some reflux symptoms - has taken H2 blockers and PPIs in past. Procedure report unavailable from EGD in 03/[address] Lange - path from gastric biopsy shows superficial congestion without significant inflammation, negative for H. pylori. S/p cholecystectomy - path w/ chronic cholecystitis, IOC negative. D/w nurse - was on GI soft diet, c/o increased pain, changed to NPO. PMH: PMH: RA on Enbrel, BPH cholecystectomy, pyloric stenosis surgery, sinus surgery, hernia repair FH: Family History: Other (nephew - pyloric stenosis) Social History: Smoke: <1 pack per day ALCOHOL: heavy Drugs: Marijuana ROS: GEN: Denies fevers, chills, sweats HEENT: Denies blurred vision, sore throat CV: Denies chest pain RESP: Denies shortness of air, cough GI: Per HPI : Denies hematuria, dysuria ENDO: +weight loss NEURO: Denies confusion, dizziness MSK: Denies weakness, joint pain/swelling SKIN: Denies jaundice, pruritus Vitals: Vitals: Vital Signs Date Time Temp Pulse Resp B/P (MAP) Pulse Ox O2 Delivery O2 Flow Rate FiO2 02/25/22 11:00 98.5 67 18 132/70 (90) 94 Room Air 98.5 Labs: Labs: Laboratory Tests Test 02/25/22 06:30 White Blood Count 8.1 x10^3/uL (4.0-11.0) Red Blood Count 3.76 x10^6/uL (4.30-5.70) Hemoglobin 13.0 g/dL (13.0-17.5) Hematocrit 37.6 % (39.0-53.0) Mean Corpuscular Volume 100 fL (79-100) Mean Corpuscular Hemoglobin 34 pg (25-35) Mean Corpuscular Hemoglobin Concent 34 g/dL (31-37) Red Cell Distribution Width 12.8 % (11.5-14.5) Platelet Count 223 x10^3/uL (140-400) Neutrophils (%) (Auto) 84 % (31-73) Lymphocytes (%) (Auto) 6 % (24-48) Monocytes (%) (Auto) 8 % (0-9) Eosinophils (%) (Auto) 1 % (0-3) Basophils (%) (Auto) 1 % (0-3) Neutrophils # (Auto) 6.8 x10^3/uL (1.8-7.7) Lymphocytes # (Auto) 0.5 x10^3/uL (1.0-4.8) Monocytes # (Auto) 0.6 x10^3/uL (0.0-1.1) Eosinophils # (Auto) 0.1 x10^3/uL (0.0-0.7) Basophils # (Auto) 0.1 x10^3/uL (0.0-0.2) Sodium Level 135 mmol/L (136-145) Potassium Level 4.1 mmol/L (3.5-5.1) Chloride Level 100 mmol/L (98-107) Carbon Dioxide Level 25 mmol/L (21-32) Anion Gap 10 (6-14) Blood Urea Nitrogen 12 mg/dL (8-26) Creatinine 0.9 mg/dL (0.7-1.3) Estimated GFR (Cockcroft-Gault) 83.4 Glucose Level 87 mg/dL (70-99) Calcium Level 7.9 mg/dL (8.5-10.1) Phosphorus Level 2.7 mg/dL (2.6-4.7) Magnesium Level 1.8 mg/dL (1.8-2.4) Allergies: Coded Allergies: Penicillins (Verified Allergy, Intermediate, 02/25/22) TOLERATES ZOSYN Medications: Current Medications Medications (Trade) Dose Ordered Sig/Genevieve Route PRN Reason Start Time Stop Time Status Last Admin Dose Admin Diphenhydramine HCl (Benadryl) 50 mg PRN QHS PRN IVP INSOMNIA 5/11/22 21:00 02/24/22 20:06 Imaging: Imaging: per HPI PE: GEN: NAD, [place] HEENT: Atraumatic, PERRL LUNGS: CTAB HEART: RRR ABD: NABS, S/ND, lower abd discomfort EXTREMITY: No edema SKIN: No rashes, no jaundice NEURO/PSYCH: A & O 3 A/P: A/P: Perforated diverticulitis - recurrent issue GERD CRC screen - reportedly UTD S/p cholecystectomy -- Will ask for PICC and TPN. Continue atbx. Will review previous 'scopes from [facility]. Add PPI. BRAXTON LANGE MD 02/25/22 1340: SAMANTA THOMPSON February 25, 2022 13:33 BRAXTON LANGE MD February 25, 2022 13:40
[2022-02-25] MEDS ORDERED: TPN PER PHARMACY MC PRN (13:45)
--- NOTE | 2022-02-25 14:36 | NUR ---
Pt refused PICC line placement. Joanne Cifuentes notified. Pharmacy notified. Will continue to monitor.
[2022-02-25 15:00] VITALS: BP 137/62
[2022-02-25 15:01] LABS: PROTHROMBIN TIME PATIENT 13.3 SEC (11.7-14.0)
[2022-02-25] MEDS: PANTOPRAZOLE IV PUSH 40 MG VIAL. IVP SCH (15:14)
[2022-02-25 19:00] VITALS: BP 124/66
[2022-02-25] MEDS ORDERED: TOTAL PARENTERAL NUTRITION 1,446.4667 ML, AMINO ACID 15% 60 GM, DEXTROSE 70 % IN WATER ... IV SCH (22:00)
[2022-02-25 23:03] VITALS: BP 133/92
[2022-02-26] MEDS: HYDROmorphone 2 MG/ML INJ. IVP PRN ×4 (04:20→21:38)
[2022-02-26] MEDS: IV NORMAL SALINE 1000ML BAG 1,000 ML IV SCH ×2 (05:32→23:37)
[2022-02-26] MEDS: PIPERACILLIN/TAZOBACTAM 3.375 GM in IV NORMAL SALINE 50ML 50 ML IV SCH ×4 (05:32→23:37)
[2022-02-26 05:40] LABS: BASO % 0 % (0-3); EOS # 0.2 x10^3/uL (0.0-0.7); EOS % 2 % (0-3); HEMATOCRIT 36.6 % (39.0-53.0); HEMOGLOBIN 12.4 g/dL (13.0-17.5); LYMPH # 0.7 x10^3/uL (1.0-4.8); LYMPH % 8 % (24-48); MEAN CORPUSCULAR HEMOGLOBIN 34 pg (25-35); MEAN CORPUSCULAR HGB CONC 34 g/dL (31-37); MEAN CORPUSCULAR VOLUME 100 fL (79-100); MONO % 11 % (0-9); NEUT # 6.8 x10^3/uL (1.8-7.7); NEUT % 78 % (31-73); PLATELET COUNT 219 x10^3/uL (140-400); RED BLOOD COUNT 3.68 x10^6/uL (4.30-5.70); RED CELL DISTRIBUTION WIDTH 12.6 % (11.5-14.5); WHITE BLOOD COUNT 8.7 x10^3/uL (4.0-11.0)
[2022-02-26 06:11] LABS: CALCIUM 7.9 mg/dL (8.5-10.1); CREATININE 0.8 mg/dL (0.7-1.3); GFR 95.6; MAGNESIUM 1.9 mg/dL (1.8-2.4); POTASSIUM 3.8 mmol/L (3.5-5.1)
[2022-02-26 07:00] VITALS: BP 139/83
[2022-02-26] MEDS: PANTOPRAZOLE IV PUSH 40 MG VIAL. IVP SCH (08:24)
[2022-02-26] MEDS: TAMSULOSIN 0.4 MG CAP.ER.24H. PO SCH (08:24)
[2022-02-26] MEDS ORDERED: ETANERCEPT 25 MG SQ SCH (09:00)
--- NOTE | 2022-02-26 10:11 | PDOC ---
GONZALO CARLISLE EXTRUDER TENDER 02/26/22 1011: SURGICAL PROGRESS NOTE DATE: 02/26/22 TIME: 10:08 Subjective ongoing abdominal pain, requiring IV medications frequently denies nausea major concern about constipation, asking about an enema upset plan is unclear, multiple people saying multiple things thinks should be feeling better in 4 days of being here ROS: no fevers, chills No SOA, cough no chest pain, palpations Vital Signs Vital Signs Date Time Temp Pulse Resp B/P (MAP) Pulse Ox O2 Delivery O2 Flow Rate FiO2 02/26/22 09:04 18 Room Air 02/26/22 07:00 98.0 64 139/83 (101) 94 98.0 I&O Intake and Output0 02/26/22 07:00 Intake Total 1724 ml Output Total 350 ml Balance 1374 ml IV Total 1724 ml Output Urine Total 350 ml General: Alert, Oriented X3, Cooperative Lungs: Clear to auscultation Heart: Regular rate, Normal S1, Normal S2 Abdomen: Soft, Other ( mild ttp lower abdomne ) Labs Laboratory Tests Test 02/25/22 06:30 02/25/22 14:02 02/26/22 04:25 White Blood Count 8.1 x10^3/uL (4.0-11.0) 8.7 x10^3/uL (4.0-11.0) Red Blood Count 3.76 x10^6/uL (4.30-5.70) 3.68 x10^6/uL (4.30-5.70) Hemoglobin 13.0 g/dL (13.0-17.5) 12.4 g/dL (13.0-17.5) Hematocrit 37.6 % (39.0-53.0) 36.6 % (39.0-53.0) Mean Corpuscular Volume 100 fL (79-100) 100 fL (79-100) Mean Corpuscular Hemoglobin 34 pg (25-35) 34 pg (25-35) Mean Corpuscular Hemoglobin Concent 34 g/dL (31-37) 34 g/dL (31-37) Red Cell Distribution Width 12.8 % (11.5-14.5) 12.6 % (11.5-14.5) Platelet Count 223 x10^3/uL (140-400) 219 x10^3/uL (140-400) Neutrophils (%) (Auto) 84 % (31-73) 78 % (31-73) Lymphocytes (%) (Auto) 6 % (24-48) 8 % (24-48) Monocytes (%) (Auto) 8 % (0-9) 11 % (0-9) Eosinophils (%) (Auto) 1 % (0-3) 2 % (0-3) Basophils (%) (Auto) 1 % (0-3) 0 % (0-3) Neutrophils # (Auto) 6.8 x10^3/uL (1.8-7.7) 6.8 x10^3/uL (1.8-7.7) Lymphocytes # (Auto) 0.5 x10^3/uL (1.0-4.8) 0.7 x10^3/uL (1.0-4.8) Monocytes # (Auto) 0.6 x10^3/uL (0.0-1.1) 1.0 x10^3/uL (0.0-1.1) Eosinophils # (Auto) 0.1 x10^3/uL (0.0-0.7) 0.2 x10^3/uL (0.0-0.7) Basophils # (Auto) 0.1 x10^3/uL (0.0-0.2) 0.0 x10^3/uL (0.0-0.2) Sodium Level 135 mmol/L (136-145) 133 mmol/L (136-145) Potassium Level 4.1 mmol/L (3.5-5.1) 3.8 mmol/L (3.5-5.1) Chloride Level 100 mmol/L (98-107) 98 mmol/L (98-107) Carbon Dioxide Level 25 mmol/L (21-32) 25 mmol/L (21-32) Anion Gap 10 (6-14) 10 (6-14) Blood Urea Nitrogen 12 mg/dL (8-26) 7 mg/dL (8-26) Creatinine 0.9 mg/dL (0.7-1.3) 0.8 mg/dL (0.7-1.3) Estimated GFR (Cockcroft-Gault) 83.4 95.6 Glucose Level 87 mg/dL (70-99) 87 mg/dL (70-99) Calcium Level 7.9 mg/dL (8.5-10.1) 7.9 mg/dL (8.5-10.1) Phosphorus Level 2.7 mg/dL (2.6-4.7) Magnesium Level 1.8 mg/dL (1.8-2.4) 1.9 mg/dL (1.8-2.4) Prothrombin Time 13.3 SEC (11.7-14.0) Prothromb Time International Ratio 1.0 (0.8-1.1) Laboratory Tests Test 02/25/22 14:02 02/26/22 04:25 Prothrombin Time 13.3 SEC (11.7-14.0) Prothromb Time International Ratio 1.0 (0.8-1.1) White Blood Count 8.7 x10^3/uL (4.0-11.0) Red Blood Count 3.68 x10^6/uL (4.30-5.70) Hemoglobin 12.4 g/dL (13.0-17.5) Hematocrit 36.6 % (39.0-53.0) Mean Corpuscular Volume 100 fL (79-100) Mean Corpuscular Hemoglobin 34 pg (25-35) Mean Corpuscular Hemoglobin Concent 34 g/dL (31-37) Red Cell Distribution Width 12.6 % (11.5-14.5) Platelet Count 219 x10^3/uL (140-400) Neutrophils (%) (Auto) 78 % (31-73) Lymphocytes (%) (Auto) 8 % (24-48) Monocytes (%) (Auto) 11 % (0-9) Eosinophils (%) (Auto) 2 % (0-3) Basophils (%) (Auto) 0 % (0-3) Neutrophils # (Auto) 6.8 x10^3/uL (1.8-7.7) Lymphocytes # (Auto) 0.7 x10^3/uL (1.0-4.8) Monocytes # (Auto) 1.0 x10^3/uL (0.0-1.1) Eosinophils # (Auto) 0.2 x10^3/uL (0.0-0.7) Basophils # (Auto) 0.0 x10^3/uL (0.0-0.2) Sodium Level 133 mmol/L (136-145) Potassium Level 3.8 mmol/L (3.5-5.1) Chloride Level 98 mmol/L (98-107) Carbon Dioxide Level 25 mmol/L (21-32) Anion Gap 10 (6-14) Blood Urea Nitrogen 7 mg/dL (8-26) Creatinine 0.8 mg/dL (0.7-1.3) Estimated GFR (Cockcroft-Gault) 95.6 Glucose Level 87 mg/dL (70-99) Calcium Level 7.9 mg/dL (8.5-10.1) Magnesium Level 1.9 mg/dL (1.8-2.4) Problem List diverticulitis afebrile, normal WBC ongoing pain discussed laxatives not appropriate with bowel inflammation pt not interested in picc and tpn, wants liquids will have Dr Timmons discuss with patient today Justicifation of Admission Dx: Justifications for Admission: Justification of Admission Dx: Yes HAZEL TIMMONS MD 02/26/22 1305: SURGICAL PROGRESS NOTE Assessment/Plan Pt seen and examined. Agree with Ms. Carlisle's note Pt frustrated with current plan, no N/V, less pain flatus, but no stools defer management to GI at this time. No surgical plans. GONZALO CARLISLE EX[employer]UDER TENDER February 26, 2022 10:11 HAZEL TMIMONS MD February 26, 2022 13:05
[2022-02-26 11:00] VITALS: BP 122/80
--- NOTE | 2022-02-26 12:54 | PDOC ---
Date of Service: DATE: 02/26/22 TIME: 12:51 Subjective: Subjective: Feels the same. Repeatedly says how he's going to without eating and he won't be able to do anything at home with TPN. Objective: Objective: D/w nurse, hospitalist, surgery. Vital Signs: Vital Signs Date Time Temp Pulse Resp B/P (MAP) Pulse Ox O2 Delivery O2 Flow Rate FiO2 02/26/22 11:00 98.4 71 18 122/80 (94) 95 Room Air 98.4 Labs: Laboratory Tests Test 02/25/22 14:02 02/26/22 04:25 Prothrombin Time 13.3 SEC Prothromb Time International Ratio 1.0 White Blood Count 8.7 x10^3/uL Red Blood Count 3.68 x10^6/uL Hemoglobin 12.4 g/dL Hematocrit 36.6 % Mean Corpuscular Volume 100 fL Mean Corpuscular Hemoglobin 34 pg Mean Corpuscular Hemoglobin Concent 34 g/dL Red Cell Distribution Width 12.6 % Platelet Count 219 x10^3/uL Neutrophils (%) (Auto) 78 % Lymphocytes (%) (Auto) 8 % Monocytes (%) (Auto) 11 % Eosinophils (%) (Auto) 2 % Basophils (%) (Auto) 0 % Neutrophils # (Auto) 6.8 x10^3/uL Lymphocytes # (Auto) 0.7 x10^3/uL Monocytes # (Auto) 1.0 x10^3/uL Eosinophils # (Auto) 0.2 x10^3/uL Basophils # (Auto) 0.0 x10^3/uL Sodium Level 133 mmol/L Potassium Level 3.8 mmol/L Chloride Level 98 mmol/L Carbon Dioxide Level 25 mmol/L Anion Gap 10 Blood Urea Nitrogen 7 mg/dL Creatinine 0.8 mg/dL Estimated GFR (Cockcroft-Gault) 95.6 Glucose Level 87 mg/dL Calcium Level 7.9 mg/dL Magnesium Level 1.9 mg/dL PE: GEN: NAD - mostly loudly talks over me LUNGS: CTAB HEART: RRR ABD: non-distended, BS+, soft NEURO/PSYCH: A & O 3, frustrated, [place] A/P: Perforated diverticulitis - recurrent issue -- Not sure we're making much progress explaining rationale of proposed treatment. Declines PICC/TPN. Consider interval CT. Defer diet to surgery/primary. Justicifation of Admission Dx: Justifications for Admission: Justification of Admission Dx: Yes SAMANTA THOMPSON February 26, 2022 12:54
[2022-02-26 15:00] VITALS: BP_SYST 135; BP_SYST 170; BP_DIAS 68; BP_DIAS 79
--- NOTE | 2022-02-26 15:45 | NUR ---
SS following up with discharge planning. SS reviewed pt chart and discussed with pt RN. Pt is currently on room air. Pt on IV Zosyn. GI and surgery following. SS will continue to follow for discharge planning.
[2022-02-26 19:00] VITALS: BP 137/66
[2022-02-26] MEDS: ZOLPIDEM 5 MG TABLET. PO PRN (21:28)
[2022-02-26] MEDS: diphenhydrAMINE HCL 25 MG CAPSULE PO PRN (21:28)
--- NOTE | 2022-02-26 22:14 | PDOC ---
[employer] PROGRESS NOTE Date of Service DOS: DATE: 02/26/22 TIME: 22:10 Chief Complaint Chief Complaint Acute diverticulitis History of diverticulosis Tobacco use History of Present Illness History of Present Illness 71-year-old male with history of diverticulosis, BPH, chronic pain and arthritis who comes in with diverticulitis. Transferred from [facility] for general surgery consult. Admitted for further care and IV antibiotics. 02/24/2022 No acute events overnight. Patient seen examined bedside. AF and VSS. Abdom inal exam is benign. Patient is passing flatus no bowel movement. We will try small mount of clears. Awaiting general surgery evaluation. Continue with IV antibiotics and IV fluids. Patient's chart, labs, images were reviewed and discussed with RN 02/25/2022 No acute events overnight. Patient seen examined bedside. This morning had some more lower abdominal pain that was cramping in nature. This happened after he had some soft diet. I have transitioned back to clear liquid diet. Pending general surgery evaluation. Continued IV fluids and IV antibiotics. Patient endorses only passing some flatus and no bowel movement. Patient's chart, labs, images were reviewed and discussed with RN 02/26/22 No acute events overnight. Pt is now NPO due to having increase ABD pain with soft GI diet. GI recommended to start with TPN and bowel rest. Pt refusing at this time and still drinking his sweet tea. At this time he is still having ABD pain and has not had a BM. He is passing some flatus. Will continue to monitor and await for his decision for parenteral nutrition. Vitals/I&O Vitals/I&O: Vital Signs Date Time Temp Pulse Resp B/P (MAP) Pulse Ox O2 Delivery O2 Flow Rate FiO2 02/26/22 21:38 18 Room Air 02/26/22 19:00 98.2 51 137/66 (89) 95 98.2 I & O 02/25/22 02/25/22 02/26/22 15:00 23:00 07:00 Intake Total 989 ml 685 ml 50 ml Output Total 350 ml Balance 989 ml 685 ml -300 ml Physical Exam General: Alert, Oriented X3, Cooperative Heart: Regular rate, Normal S1, Normal S2 Lungs: Clear Abdomen: Soft, Other ( mild ttp lower abdomne ) Extremities: No clubbing, No cyanosis Skin: No rashes, No breakdown Labs Labs: Laboratory Tests Test 02/26/22 04:25 White Blood Count 8.7 x10^3/uL (4.0-11.0) Red Blood Count 3.68 x10^6/uL (4.30-5.70) Hemoglobin 12.4 g/dL (13.0-17.5) Hematocrit 36.6 % (39.0-53.0) Mean Corpuscular Volume 100 fL (79-100) Mean Corpuscular Hemoglobin 34 pg (25-35) Mean Corpuscular Hemoglobin Concent 34 g/dL (31-37) Red Cell Distribution Width 12.6 % (11.5-14.5) Platelet Count 219 x10^3/uL (140-400) Neutrophils (%) (Auto) 78 % (31-73) Lymphocytes (%) (Auto) 8 % (24-48) Monocytes (%) (Auto) 11 % (0-9) Eosinophils (%) (Auto) 2 % (0-3) Basophils (%) (Auto) 0 % (0-3) Neutrophils # (Auto) 6.8 x10^3/uL (1.8-7.7) Lymphocytes # (Auto) 0.7 x10^3/uL (1.0-4.8) Monocytes # (Auto) 1.0 x10^3/uL (0.0-1.1) Eosinophils # (Auto) 0.2 x10^3/uL (0.0-0.7) Basophils # (Auto) 0.0 x10^3/uL (0.0-0.2) Sodium Level 133 mmol/L (136-145) Potassium Level 3.8 mmol/L (3.5-5.1) Chloride Level 98 mmol/L (98-107) Carbon Dioxide Level 25 mmol/L (21-32) Anion Gap 10 (6-14) Blood Urea Nitrogen 7 mg/dL (8-26) Creatinine 0.8 mg/dL (0.7-1.3) Estimated GFR (Cockcroft-Gault) 95.6 Glucose Level 87 mg/dL (70-99) Calcium Level 7.9 mg/dL (8.5-10.1) Magnesium Level 1.9 mg/dL (1.8-2.4) Comment Review of Relevant I have reviewed the following items ramona (where applicable) has been applied. Justifications for Admission Other Justification MORIAH OGDEN MD February 26, 2022 22:14
[2022-02-26 23:03] VITALS: BP 134/62
[2022-02-27] MEDS: HYDROmorphone 2 MG/ML INJ. IVP PRN ×5 (04:15→22:15)
[2022-02-27] MEDS: PIPERACILLIN/TAZOBACTAM 3.375 GM in IV NORMAL SALINE 50ML 50 ML IV SCH ×3 (05:44→17:20)
[2022-02-27] MEDS: IV NORMAL SALINE 1000ML BAG 1,000 ML IV SCH ×2 (05:46→22:11)
[2022-02-27 05:56] LABS: BASO % 1 % (0-3); EOS # 0.3 x10^3/uL (0.0-0.7); EOS % 4 % (0-3); HEMATOCRIT 35.2 % (39.0-53.0); HEMOGLOBIN 11.8 g/dL (13.0-17.5); LYMPH # 0.9 x10^3/uL (1.0-4.8); LYMPH % 10 % (24-48); MEAN CORPUSCULAR HEMOGLOBIN 34 pg (25-35); MEAN CORPUSCULAR HGB CONC 34 g/dL (31-37); MEAN CORPUSCULAR VOLUME 100 fL (79-100); MONO # 1.2 x10^3/uL (0.0-1.1); MONO % 14 % (0-9); NEUT # 5.8 x10^3/uL (1.8-7.7); NEUT % 71 % (31-73); PLATELET COUNT 233 x10^3/uL (140-400); RED BLOOD COUNT 3.52 x10^6/uL (4.30-5.70); RED CELL DISTRIBUTION WIDTH 12.5 % (11.5-14.5); WHITE BLOOD COUNT 8.2 x10^3/uL (4.0-11.0)
[2022-02-27 05:59] LABS: CALCIUM 8.1 mg/dL (8.5-10.1); CREATININE 0.8 mg/dL (0.7-1.3); GFR 95.6; MAGNESIUM 1.9 mg/dL (1.8-2.4); POTASSIUM 3.6 mmol/L (3.5-5.1)
[2022-02-27] MEDS: PANTOPRAZOLE IV PUSH 40 MG VIAL. IVP SCH (06:19)
[2022-02-27 07:00] VITALS: BP 129/66
[2022-02-27] MEDS: TAMSULOSIN 0.4 MG CAP.ER.24H. PO SCH (09:17)
[2022-02-27 11:00] VITALS: BP 121/54
--- NOTE | 2022-02-27 11:49 | PDOC ---
PROGRESS NOTES Date of Service DATE: 02/27/22 TIME: 11:48 Subjective Subjective Pain is improved some today, passing gas Objective Objective Vital Signs Date Time Temp Pulse Resp B/P (MAP) Pulse Ox O2 Delivery O2 Flow Rate FiO2 02/27/22 11:00 97.4 73 18 121/54 (76) 97 Room Air 97.4 Intake and Output 02/27/22 07:00 Intake Total 1050 ml Balance 1050 ml IV Total 1050 ml # Voids 2 Physical Exam Abdomen: Soft (mildly tender LLQ) Heart: Regular rate, Normal S2 Extremities: No clubbing General: Alert, Oriented X3 Neuro: Normal speech Assessment Assessment Diverticulitis Plan Plan of Care No surgical plans, defer to GI Comment Review of Relevant I have reviewed the following items ramona (where applicable) has been applied. Labs Laboratory Tests Test 02/25/22 14:02 02/26/22 04:25 02/27/22 04:40 Prothrombin Time 13.3 SEC (11.7-14.0) Prothromb Time International Ratio 1.0 (0.8-1.1) White Blood Count 8.7 x10^3/uL (4.0-11.0) 8.2 x10^3/uL (4.0-11.0) Red Blood Count 3.68 x10^6/uL (4.30-5.70) 3.52 x10^6/uL (4.30-5.70) Hemoglobin 12.4 g/dL (13.0-17.5) 11.8 g/dL (13.0-17.5) Hematocrit 36.6 % (39.0-53.0) 35.2 % (39.0-53.0) Mean Corpuscular Volume 100 fL (79-100) 100 fL (79-100) Mean Corpuscular Hemoglobin 34 pg (25-35) 34 pg (25-35) Mean Corpuscular Hemoglobin Concent 34 g/dL (31-37) 34 g/dL (31-37) Red Cell Distribution Width 12.6 % (11.5-14.5) 12.5 % (11.5-14.5) Platelet Count 219 x10^3/uL (140-400) 233 x10^3/uL (140-400) Neutrophils (%) (Auto) 78 % (31-73) 71 % (31-73) Lymphocytes (%) (Auto) 8 % (24-48) 10 % (24-48) Monocytes (%) (Auto) 11 % (0-9) 14 % (0-9) Eosinophils (%) (Auto) 2 % (0-3) 4 % (0-3) Basophils (%) (Auto) 0 % (0-3) 1 % (0-3) Neutrophils # (Auto) 6.8 x10^3/uL (1.8-7.7) 5.8 x10^3/uL (1.8-7.7) Lymphocytes # (Auto) 0.7 x10^3/uL (1.0-4.8) 0.9 x10^3/uL (1.0-4.8) Monocytes # (Auto) 1.0 x10^3/uL (0.0-1.1) 1.2 x10^3/uL (0.0-1.1) Eosinophils # (Auto) 0.2 x10^3/uL (0.0-0.7) 0.3 x10^3/uL (0.0-0.7) Basophils # (Auto) 0.0 x10^3/uL (0.0-0.2) 0.0 x10^3/uL (0.0-0.2) Sodium Level 133 mmol/L (136-145) 137 mmol/L (136-145) Potassium Level 3.8 mmol/L (3.5-5.1) 3.6 mmol/L (3.5-5.1) Chloride Level 98 mmol/L (98-107) 101 mmol/L (98-107) Carbon Dioxide Level 25 mmol/L (21-32) 23 mmol/L (21-32) Anion Gap 10 (6-14) 13 (6-14) Blood Urea Nitrogen 7 mg/dL (8-26) 8 mg/dL (8-26) Creatinine 0.8 mg/dL (0.7-1.3) 0.8 mg/dL (0.7-1.3) Estimated GFR (Cockcroft-Gault) 95.6 95.6 Glucose Level 87 mg/dL (70-99) 65 mg/dL (70-99) Calcium Level 7.9 mg/dL (8.5-10.1) 8.1 mg/dL (8.5-10.1) Magnesium Level 1.9 mg/dL (1.8-2.4) 1.9 mg/dL (1.8-2.4) Laboratory Tests Test 02/27/22 04:40 White Blood Count 8.2 x10^3/uL (4.0-11.0) Red Blood Count 3.52 x10^6/uL (4.30-5.70) Hemoglobin 11.8 g/dL (13.0-17.5) Hematocrit 35.2 % (39.0-53.0) Mean Corpuscular Volume 100 fL (79-100) Mean Corpuscular Hemoglobin 34 pg (25-35) Mean Corpuscular Hemoglobin Concent 34 g/dL (31-37) Red Cell Distribution Width 12.5 % (11.5-14.5) Platelet Count 233 x10^3/uL (140-400) Neutrophils (%) (Auto) 71 % (31-73) Lymphocytes (%) (Auto) 10 % (24-48) Monocytes (%) (Auto) 14 % (0-9) Eosinophils (%) (Auto) 4 % (0-3) Basophils (%) (Auto) 1 % (0-3) Neutrophils # (Auto) 5.8 x10^3/uL (1.8-7.7) Lymphocytes # (Auto) 0.9 x10^3/uL (1.0-4.8) Monocytes # (Auto) 1.2 x10^3/uL (0.0-1.1) Eosinophils # (Auto) 0.3 x10^3/uL (0.0-0.7) Basophils # (Auto) 0.0 x10^3/uL (0.0-0.2) Sodium Level 137 mmol/L (136-145) Potassium Level 3.6 mmol/L (3.5-5.1) Chloride Level 101 mmol/L (98-107) Carbon Dioxide Level 23 mmol/L (21-32) Anion Gap 13 (6-14) Blood Urea Nitrogen 8 mg/dL (8-26) Creatinine 0.8 mg/dL (0.7-1.3) Estimated GFR (Cockcroft-Gault) 95.6 Glucose Level 65 mg/dL (70-99) Calcium Level 8.1 mg/dL (8.5-10.1) Magnesium Level 1.9 mg/dL (1.8-2.4) Medications Current Medications Hydromorphone HCl (Dilaudid) 1 mg PRN Q2HR PRN IVP SEVERE PAIN 7-10 Last administered on 02/27/22at 09:16; Start 02/23/22 at 21:00 Diphenhydramine HCl (Benadryl) 50 mg PRN QHS PRN PO INSOMNIA; Start 02/23/22 at 21:00; Status Cancel Sodium Chloride 1,000 ml @ 75 mls/hr [id number] IV Last administered on 02/27/22at 05:46; Start 02/23/22 at 21:00 Piperacillin Sod/ Tazobactam Sod (Zosyn Per Pharmacy) 1 each PRN DAILY PRN MC SEE COMMENTS; Start 02/24/22 at 09:00 Tamsulosin HCl (Flomax) 0.4 mg DAILY PO Last administered on 02/27/22at 09:17; Start 02/24/22 at 09:00 Non-Formulary Medication (Etanercept (Enbrel)) 25 mg WEEKLY SQ ; Start 02/26/22 at 09:00; Status UNV Diphenhydramine HCl (Benadryl) 50 mg HS IVP ; Start 02/24/22 at 21:00; Stop 02/24/22 at 00:00; Status DC Diphenhydramine HCl (Benadryl) 50 mg 1X ONCE IM ; Start 02/23/22 at 22:30; Stop 02/23/22 at 22:31; Status DC Diphenhydramine HCl (Benadryl) 50 mg PRN QHS PRN IVP INSOMNIA Last administered on 02/24/22at 20:06; Start 02/24/22 at 21:00 Piperacillin Sod/ Tazobactam Sod 3.375 gm/Sodium Chloride 50 ml @ 100 mls/hr Q6HRS IV Last administered on 02/27/22at 05:44; Start 02/24/22 at 01:00 Sennosides (Senna) 17.2 mg PRN BID PRN PO CONSTIPATION; Start 02/24/22 at 11:45 Docusate Sodium (Colace) 100 mg PRN DAILY PRN PO HARD STOOLS; Start 02/24/22 at 11:45 Ondansetron HCl (Zofran) 4 mg PRN Q6HRS PRN IVP NAUSEA/VOMITING, 1st CHOICE; Start 02/24/22 at 11:45 Acetaminophen (Tylenol) 650 mg PRN Q4HRS PRN PO TEMP OVER 100.4F OR MILD PAIN Last administered on 02/25/22at 10:47; Start 02/24/22 at 11:45 Lorazepam (Ativan) 0.5 mg PRN Q6HRS PRN PO ANXIETY / AGITATION; Start 02/24/22 at 11:45 Lorazepam (Ativan Inj) 0.25 mg PRN Q4HRS PRN IV ANXIETY / AGITATION Last administered on 02/26/22at 18:17; Start 02/24/22 at 11:45 Prochlorperazine Edisylate (Compazine) 10 mg PRN Q6HRS PRN IV NAUSEA/VOMITING, 2nd CHOICE; Start 02/24/22 at 11:45 Diphenhydramine HCl (Benadryl) 25 mg PRN Q6HRS PRN IVP ITCHING; Start 02/24/22 at 11:45 Diphenhydramine HCl (Benadryl) 25 mg PRN Q6HRS PRN PO ITCHING; Start 02/24/22 at 11:45 Diphenhydramine HCl (Benadryl) 25 mg PRN QHS PRN PO INSOMNIA, 1st CHOICE Last administered on 02/26/22at 21:28; Start 02/24/22 at 11:45 Zolpidem Tartrate (Ambien) 2.5 mg PRN QHS PRN PO INSOMNIA, 2nd CHOICE Last administered on 02/26/22at 21:28; Start 02/24/22 at 11:45 Pantoprazole Sodium (PROTONIX VIAL for IV PUSH) 40 mg DAILYAC IVP Last administered on 02/27/22at 06:19; Start 02/25/22 at 14:00 Info (Tpn Per Pharmacy) 1 each PRN DAILY PRN MC SEE COMMENTS; Start 02/25/22 at 13:45; Stop 02/25/22 at 14:37; Status DC Sodium Chloride 90 meq/Potassium Chloride 50 meq/ Potassium Phosphate 13.6 mmol/Magnesium Sulfate 10 meq/ Multivitamins 10 ml/Zinc/Copper/ Manganese/ Selenium 1 ml/ Total Parenteral Nutrition/Amino Acids/Dextrose/ Fat Emulsion Intravenous 1,512 ml @ 63 mls/hr TPN CONT IV ; Start 02/25/22 at 22:00; Stop 02/26/22 at 21:59; Status Cancel Active Scripts Active Reported Colace (Docusate Sodium) 100 Mg Capsule 1 Cap PO BID 30 Days Hydrocodone-Apap 5-325 (Hydrocodone Bit/Acetaminophen) 1 Tab Tablet 1 Tab PO PRN PRN Multiple Vitamins (Multivitamin) 1 Each Tablet 1 Tab PO DAILY 30 Days Pepcid (Famotidine) 40 Mg Tablet 40 Mg PO HS Protonix (Pantoprazole Sodium) 20 Mg Tablet.dr 20 Mg PO DAILY Enbrel (Etanercept) 25 Mg/0.5 Ml Vial 25 Mg SQ WEEKLY Flomax (Tamsulosin Hcl) 0.4 Mg Cap.er.24h 0.4 Mg PO DAILY Vitals/I & O Vital Sign - Last 24 Hours 02/26/22 02/26/22 02/26/22 02/26/22 15:00 15:44 16:14 19:00 Temp 98.4 98.2 98.4 98.2 Pulse 50 51 Resp 18 18 18 20 B/P (MAP) 170/68 (102) 137/66 (89) Pulse Ox 95 95 O2 Delivery Room Air Room Air Room Air Room Air 02/26/22 02/26/22 02/26/22 02/27/22 20:00 21:38 23:03 04:15 Temp 98.2 98.2 Pulse 51 Resp 18 20 18 B/P (MAP) 134/62 (86) Pulse Ox 95 O2 Delivery Room Air Room Air Room Air Room Air 02/27/22 02/27/22 02/27/22 02/27/22 07:00 08:00 09:16 09:45 Temp 98.8 98.8 Pulse 54 Resp 17 19 18 B/P (MAP) 129/66 (87) Pulse Ox 95 O2 Delivery Room Air Room Air Room Air Room Air 02/27/22 11:00 Temp 97.4 97.4 Pulse 73 Resp 18 B/P (MAP) 121/54 (76) Pulse Ox 97 O2 Delivery Room Air Intake and Output 02/26/22 02/26/2222 15:00 23:00 07:00 Intake Total 1050 ml Balance 1050 ml Justifications for Admission Other Justification BRAXTON MARTINEZ MD February 27, 2022 11:48
--- NOTE | 2022-02-27 12:13 | PDOC ---
[employer] PROGRESS NOTE Date of Service DOS: DATE: 02/27/22 TIME: 12:06 Chief Complaint Chief Complaint Acute diverticulitis History of diverticulosis Tobacco use Hold off on TPN as patient does not wish to pursue this route and would like to try the conservative method of rechallenge eating a soft diet Continue IV antibiotics Continue IV fluids Consider interval CT scan Consider advancing to clear liquid diet appreciate GI and surgery recommendations History of Present Illness History of Present Illness 71-year-old male with history of diverticulosis, BPH, chronic pain and arthritis who comes in with diverticulitis. Transferred from [facility] for general surgery consult. Admitted for further care and IV antibiotics. 02/24/2022 No acute events overnight. Patient seen examined bedside. AF and VSS. Abdominal exam is benign. Patient is passing flatus no bowel movement. We will try small mount of clears. Awaiting general surgery evaluation. Continue with IV antibiotics and IV fluids. Patient's chart, labs, images were reviewed and discussed with RN 02/25/2022 No acute events overnight. Patient seen examined bedside. This morning had some more lower abdominal pain that was cramping in nature. This happened after he had some soft diet. I have transitioned back to clear liquid diet. Pending general surgery evaluation. Continued IV fluids and IV antibiotics. Patient endorses only passing some flatus and no bowel movement. Patient's chart, labs, images were reviewed and discussed with RN 02/26/22 No acute events overnight. Pt is now NPO due to having increase ABD pain with soft GI diet. GI recommended to start with TPN and bowel rest. Pt refusing at this time and still drinking his sweet tea. At this time he is still having ABD pain and has not had a BM. He is passing some flatus. Will continue to monitor and await for his decision for parenteral nutrition. 02/27/22 No acute events overnight. Patient seen examined bedside. Pain is improved and patient has passed significant amount of gas compared to yesterday. Mild left lower quadrant pain. Patient's chart, labs, images were reviewed and discussed with RN Vitals/I&O Vitals/I&O: Vital Signs Date Time Temp Pulse Resp B/P (MAP) Pulse Ox O2 Delivery O2 Flow Rate FiO2 02/27/22 11:00 97.4 73 18 121/54 (76) 97 Room Air 97.4 I & O 02/26/22 02/26/22 02/27/22 15:00 23:00 07:00 Intake Total 1050 ml Balance 1050 ml Physical Exam General: Alert, Oriented X3 Heart: Regular rate, Normal S2 Lungs: Clear Abdomen: Soft (mildly tender LLQ) Extremities: No clubbing Skin: No rashes, No breakdown Labs Labs: Laboratory Tests Test 02/27/22 04:40 White Blood Count 8.2 x10^3/uL (4.0-11.0) Red Blood Count 3.52 x10^6/uL (4.30-5.70) Hemoglobin 11.8 g/dL (13.0-17.5) Hematocrit 35.2 % (39.0-53.0) Mean Corpuscular Volume 100 fL (79-100) Mean Corpuscular Hemoglobin 34 pg (25-35) Mean Corpuscular Hemoglobin Concent 34 g/dL (31-37) Red Cell Distribution Width 12.5 % (11.5-14.5) Platelet Count 233 x10^3/uL (140-400) Neutrophils (%) (Auto) 71 % (31-73) Lymphocytes (%) (Auto) 10 % (24-48) Monocytes (%) (Auto) 14 % (0-9) Eosinophils (%) (Auto) 4 % (0-3) Basophils (%) (Auto) 1 % (0-3) Neutrophils # (Auto) 5.8 x10^3/uL (1.8-7.7) Lymphocytes # (Auto) 0.9 x10^3/uL (1.0-4.8) Monocytes # (Auto) 1.2 x10^3/uL (0.0-1.1) Eosinophils # (Auto) 0.3 x10^3/uL (0.0-0.7) Basophils # (Auto) 0.0 x10^3/uL (0.0-0.2) Sodium Level 137 mmol/L (136-145) Potassium Level 3.6 mmol/L (3.5-5.1) Chloride Level 101 mmol/L (98-107) Carbon Dioxide Level 23 mmol/L (21-32) Anion Gap 13 (6-14) Blood Urea Nitrogen 8 mg/dL (8-26) Creatinine 0.8 mg/dL (0.7-1.3) Estimated GFR (Cockcroft-Gault) 95.6 Glucose Level 65 mg/dL (70-99) Calcium Level 8.1 mg/dL (8.5-10.1) Magnesium Level 1.9 mg/dL (1.8-2.4) Comment Review of Relevant I have reviewed the following items ramona (where applicable) has been applied. Justifications for Admission Other Justification MORIAH OGDEN MD February 27, 2022 12:13
--- NOTE | 2022-02-27 12:56 | NUR ---
This RN ok'd with Dr. Kulkarni to attempt a clear liquid diet, will attempt and continue to monitor, Dr. Flores notified.
[2022-02-27 14:59] VITALS: BP 132/64
[2022-02-27 19:00] VITALS: BP 139/62
[2022-02-27] MEDS: ACETAMINOPHEN 325 MG TABLET. PO PRN (19:59)
[2022-02-27] MEDS: diphenhydrAMINE HCL 25 MG CAPSULE PO PRN (22:15)
[2022-02-27] MEDS: ZOLPIDEM 5 MG TABLET. PO PRN (22:15)
[2022-02-27 23:00] VITALS: BP 124/63
[2022-02-28] MEDS: PIPERACILLIN/TAZOBACTAM 3.375 GM in IV NORMAL SALINE 50ML 50 ML IV SCH ×4 (00:30→18:00)
[2022-02-28 03:00] VITALS: BP 132/65
[2022-02-28] MEDS: PANTOPRAZOLE IV PUSH 40 MG VIAL. IVP SCH (06:46)
[2022-02-28 07:00] VITALS: BP 144/66
[2022-02-28] MEDS: IV NORMAL SALINE 1000ML BAG 1,000 ML IV SCH (07:40)
[2022-02-28] MEDS: SENNOSIDES 8.6 MG TABLET PO PRN (08:24)
[2022-02-28] MEDS: HYDROcodone/APAP 5/325MG 1 TAB TABLET PO PRN ×2 (08:24→14:40)
[2022-02-28] MEDS: TAMSULOSIN 0.4 MG CAP.ER.24H. PO SCH (08:24)
--- NOTE | 2022-02-28 10:21 | PDOC ---
PROGRESS NOTES Date of Service DATE: 02/28/22 TIME: 10:20 Subjective Subjective Not feeling any better, cranky Objective Objective Vital Signs Date Time Temp Pulse Resp B/P (MAP) Pulse Ox O2 Delivery O2 Flow Rate FiO2 02/28/22 08:24 19 Room Air 02/28/22 07:00 97.0 49 144/66 (92) 94 4.0 97.0 Intake and Output 02/28/22 07:00 Intake Total 1980 ml Output Total 300 ml Balance 1680 ml Intake Oral 930 ml IV Total 1050 ml Output Urine Total 300 ml # Voids 2 # Bowel Movements 1 Physical Exam Abdomen: Soft (reports some discomfort in lower abdomen, no guarding) Heart: Regular rate General: Alert, Oriented X3 Lungs: Clear to auscultation Assessment Assessment ?Diverticulitis Plan Plan of Care Given continued symptoms, will repeat CT scan Comment Review of Relevant I have reviewed the following items ramona (where applicable) has been applied. Labs Laboratory Tests Test 02/27/22 04:40 White Blood Count 8.2 x10^3/uL (4.0-11.0) Red Blood Count 3.52 x10^6/uL (4.30-5.70) Hemoglobin 11.8 g/dL (13.0-17.5) Hematocrit 35.2 % (39.0-53.0) Mean Corpuscular Volume 100 fL (79-100) Mean Corpuscular Hemoglobin 34 pg (25-35) Mean Corpuscular Hemoglobin Concent 34 g/dL (31-37) Red Cell Distribution Width 12.5 % (11.5-14.5) Platelet Count 233 x10^3/uL (140-400) Neutrophils (%) (Auto) 71 % (31-73) Lymphocytes (%) (Auto) 10 % (24-48) Monocytes (%) (Auto) 14 % (0-9) Eosinophils (%) (Auto) 4 % (0-3) Basophils (%) (Auto) 1 % (0-3) Neutrophils # (Auto) 5.8 x10^3/uL (1.8-7.7) Lymphocytes # (Auto) 0.9 x10^3/uL (1.0-4.8) Monocytes # (Auto) 1.2 x10^3/uL (0.0-1.1) Eosinophils # (Auto) 0.3 x10^3/uL (0.0-0.7) Basophils # (Auto) 0.0 x10^3/uL (0.0-0.2) Sodium Level 137 mmol/L (136-145) Potassium Level 3.6 mmol/L (3.5-5.1) Chloride Level 101 mmol/L (98-107) Carbon Dioxide Level 23 mmol/L (21-32) Anion Gap 13 (6-14) Blood Urea Nitrogen 8 mg/dL (8-26) Creatinine 0.8 mg/dL (0.7-1.3) Estimated GFR (Cockcroft-Gault) 95.6 Glucose Level 65 mg/dL (70-99) Calcium Level 8.1 mg/dL (8.5-10.1) Magnesium Level 1.9 mg/dL (1.8-2.4) Medications Current Medications Hydromorphone HCl (Dilaudid) 1 mg PRN Q2HR PRN IVP SEVERE PAIN 7-10 Last administered on 02/27/22at 22:15; Start 02/23/22 at 21:00 Diphenhydramine HCl (Benadryl) 50 mg PRN QHS PRN PO INSOMNIA; Start 02/23/22 at 21:00; Status Cancel Sodium Chloride 1,000 ml @ 75 mls/hr [id number] IV Last administered on 02/27/22at 22:11; Start 02/23/22 at 21:00 Piperacillin Sod/ Tazobactam Sod (Zosyn Per Pharmacy) 1 each PRN DAILY PRN MC SEE COMMENTS; Start 02/24/22 at 09:00 Tamsulosin HCl (Flomax) 0.4 mg DAILY PO Last administered on 02/28/22at 08:24; Start 02/24/22 at 09:00 Non-Formulary Medication (Etanercept (Enbrel)) 25 mg WEEKLY SQ ; Start 02/26/22 at 09:00; Status UNV Diphenhydramine HCl (Benadryl) 50 mg HS IVP ; Start 02/24/22 at 21:00; Stop 02/24/22 at 00:00; Status DC Diphenhydramine HCl (Benadryl) 50 mg 1X ONCE IM ; Start 02/23/22 at 22:30; Stop 02/23/22 at 22:31; Status DC Diphenhydramine HCl (Benadryl) 50 mg PRN QHS PRN IVP INSOMNIA Last administered on 02/24/22at 20:06; Start 02/24/22 at 21:00 Piperacillin Sod/ Tazobactam Sod 3.375 gm/Sodium Chloride 50 ml @ 100 mls/hr Q6HRS IV Last administered on 02/28/22at 05:13; Start 02/24/22 at 01:00 Sennosides (Senna) 17.2 mg PRN BID PRN PO CONSTIPATION Last administered on 02/28/22at 08:24; Start 02/24/22 at 11:45 Docusate Sodium (Colace) 100 mg PRN DAILY PRN PO HARD STOOLS; Start 02/24/22 at 11:45 Ondansetron HCl (Zofran) 4 mg PRN Q6HRS PRN IVP NAUSEA/VOMITING, 1st CHOICE; Start 02/24/22 at 11:45 Acetaminophen (Tylenol) 650 mg PRN Q4HRS PRN PO TEMP OVER 100.4F OR MILD PAIN Last administered on 02/27/22at 19:59; Start 02/24/22 at 11:45 Lorazepam (Ativan) 0.5 mg PRN Q6HRS PRN PO ANXIETY / AGITATION; Start 02/24/22 at 11:45 Lorazepam (Ativan Inj) 0.25 mg PRN Q4HRS PRN IV ANXIETY / AGITATION Last administered on 02/26/22at 18:17; Start 02/24/22 at 11:45 Prochlorperazine Edisylate (Compazine) 10 mg PRN Q6HRS PRN IV NAUSEA/VOMITING, 2nd CHOICE; Start 02/24/22 at 11:45 Diphenhydramine HCl (Benadryl) 25 mg PRN Q6HRS PRN IVP ITCHING; Start 02/24/22 at 11:45 Diphenhydramine HCl (Benadryl) 25 mg PRN Q6HRS PRN PO ITCHING; Start 02/24/22 at 11:45 Diphenhydramine HCl (Benadryl) 25 mg PRN QHS PRN PO INSOMNIA, 1st CHOICE Last administered on 02/27/22at 22:15; Start 02/24/22 at 11:45 Zolpidem Tartrate (Ambien) 2.5 mg PRN QHS PRN PO INSOMNIA, 2nd CHOICE Last administered on 02/27/22at 22:15; Start 02/24/22 at 11:45 Pantoprazole Sodium (PROTONIX VIAL for IV PUSH) 40 mg DAILYAC IVP Last administered on 02/28/22at 06:46; Start 02/25/22 at 14:00 Info (Tpn Per Pharmacy) 1 each PRN DAILY PRN MC SEE COMMENTS; Start 02/25/22 at 13:45; Stop 02/25/22 at 14:37; Status DC Sodium Chloride 90 meq/Potassium Chloride 50 meq/ Potassium Phosphate 13.6 mmol/Magnesium Sulfate 10 meq/ Multivitamins 10 ml/Zinc/Copper/ Manganese/ Selenium 1 ml/ Total Parenteral Nutrition/Amino Acids/Dextrose/ Fat Emulsion Intravenous 1,512 ml @ 63 mls/hr TPN CONT IV ; Start 02/25/22 at 22:00; Stop 02/26/22 at 21:59; Status Cancel Acetaminophen/ Hydrocodone Bitart (Lortab 5/325) 1 tab Q6HRS PRN PO MODERATE PAIN Last administered on 02/28/22at 08:24; Start 02/28/22 at 08:00 Active Scripts Active Reported Colace (Docusate Sodium) 100 Mg Capsule 1 Cap PO BID 30 Days Hydrocodone-Apap 5-325 (Hydrocodone Bit/Acetaminophen) 1 Tab Tablet 1 Tab PO PRN PRN Multiple Vitamins (Multivitamin) 1 Each Tablet 1 Tab PO DAILY 30 Days Pepcid (Famotidine) 40 Mg Tablet 40 Mg PO HS Protonix (Pantoprazole Sodium) 20 Mg Tablet.dr 20 Mg PO DAILY Enbrel (Etanercept) 25 Mg/0.5 Ml Vial 25 Mg SQ WEEKLY Flomax (Tamsulosin Hcl) 0.4 Mg Cap.er.24h 0.4 Mg PO DAILY Vitals/I & O Vital Sign - Last 24 Hours 02/27/22 02/27/22 02/27/22 02/27/22 11:00 14:29 14:59 14:59 Temp 97.4 98.2 97.4 98.2 Pulse 73 65 Resp 18 18 18 17 B/P (MAP) 121/54 (76) 132/64 (86) Pulse Ox 97 96 O2 Delivery Room Air Room Air Room Air Room Air 02/27/22 02/27/22 02/27/22 02/27/22 19:00 19:58 20:00 20:28 Temp 97.7 97.7 Pulse 46 Resp 18 18 18 B/P (MAP) 139/62 (87) Pulse Ox 97 O2 Delivery Room Air Room Air Room Air Room Air 02/27/22 02/27/22 02/27/22 02/28/22 22:15 22:45 23:00 03:00 Temp 97.3 97.9 97.3 97.9 Pulse 43 40 Resp 20 18 18 20 B/P (MAP) 124/63 (83) 132/65 (87) Pulse Ox 94 98 O2 Delivery Room Air Room Air Nasal Cannula O2 Flow Rate 4.0 02/28/22 02/28/22 02/28/22 07:00 08:00 08:24 Temp 97.0 97.0 Pulse 49 Resp 20 19 B/P (MAP) 144/66 (92) Pulse Ox 94 O2 Delivery Nasal Cannula Room Air Room Air O2 Flow Rate 4.0 Intake and Output 02/27/22 02/27/22 02/28/22 15:00 23:00 07:00 Intake Total 510 ml 1120 ml 350 ml Output Total 300 ml Balance 510 ml 1120 ml 50 ml Justifications for Admission Other Justification BRAXTON MARTINEZ MD February 28, 2022 10:21
[2022-02-28] MEDS ORDERED: IOHEXOL 240 MG/ML 50ML VIAL. PO ONE (10:45)
[2022-02-28] MEDS ORDERED: IOHEXOL 300 MG/ML 100ML VIAL. IV ONE (10:45)
[2022-02-28 10:56] VITALS: BP 140/55
--- NOTE | 2022-02-28 11:18 | PDOC ---
[employer] PROGRESS NOTE Date of Service DOS: DATE: 02/28/22 TIME: 11:18 Chief Complaint Chief Complaint Acute diverticulitis History of diverticulosis Tobacco use Hold off on TPN as patient does not wish to pursue this route and would like to try the conservative method of rechallenge eating a soft diet Continue IV antibiotics Continue IV fluids Pending repeat interval CT scan Consider advancing to clear liquid diet appreciate GI and surgery recommendations History of Present Illness History of Present Illness 71-year-old male with history of diverticulosis, BPH, chronic pain and arthritis who comes in with diverticulitis. Transferred from [facility] for general surgery consult. Admitted for further care and IV antibiotics. 02/24/2022 No acute events overnight. Patient seen examined bedside. AF and VSS. Abdominal exam is benign. Patient is passing flatus no bowel movement. We will try small mount of clears. Awaiting general surgery evaluation. Continue with IV antibiotics and IV fluids. Patient's chart, labs, images were reviewed and discussed with RN 02/25/2022 No acute events overnight. Patient seen examined bedside. This morning had some more lower abdominal pain that was cramping in nature. This happened after he had some soft diet. I have transitioned back to clear liquid diet. Pending general surgery evaluation. Continued IV fluids and IV antibiotics. Patient endorses only passing some flatus and no bowel movement. Patient's chart, labs, images were reviewed and discussed with RN 02/26/22 No acute events overnight. Pt is now NPO due to having increase ABD pain with soft GI diet. GI recommended to start with TPN and bowel rest. Pt refusing at this time and still drinking his sweet tea. At this time he is still having ABD pain and has not had a BM. He is passing some flatus. Will continue to monitor and await for his decision for parenteral nutrition. 02/27/22 No acute events overnight. Patient seen examined bedside. Pain is improved and patient has passed significant amount of gas compared to yesterday. Mild left lower quadrant pain. Patient's chart, labs, images were reviewed and discussed with RN 02/28/2022 No acute events overnight patient being seen examined bedside. Not feeling better and upset because there is no definitive plan. Pending CT scan of the abdomen pelvis today. Patient's chart, labs, images were reviewed and discussed with RN Vitals/I&O Vitals/I&O: Vital Signs Date Time Temp Pulse Resp B/P (MAP) Pulse Ox O2 Delivery O2 Flow Rate FiO2 02/28/22 10:56 97.7 42 20 140/55 (83) 97 Room Air 97.7 02/28/22 07:00 4.0 I & O 02/27/22 02/27/22 02/28/22 15:00 23:00 07:00 Intake Total 510 ml 1120 ml 350 ml Output Total 300 ml Balance 510 ml 1120 ml 50 ml Physical Exam General: Alert, Oriented X3 Heart: Regular rate Lungs: Clear Abdomen: Soft (reports some discomfort in lower abdomen, no guarding) Extremities: No clubbing Skin: No rashes, No breakdown Comment Review of Relevant I have reviewed the following items ramona (where applicable) has been applied. Medications: Current Medications Medications (Trade) Dose Ordered Sig/Genevieve Route PRN Reason Start Time Stop Time Status Last Admin Dose Admin Acetaminophen/ Hydrocodone Bitart (Lortab 5/325) 1 tab Q6HRS PRN PO MODERATE PAIN 02/28/22 08:00 02/28/22 08:24 Iohexol (Omnipaque 240 Mg/ml) 50 ml 1X ONCE PO 02/28/22 10:45 02/28/22 10:46 DC 02/28/22 10:30 Justifications for Admission Other Justification MORIAH OGDEN MD February 28, 2022 11:18
[2022-02-28 14:53] VITALS: BP 135/67
[2022-02-28 19:00] VITALS: BP 151/73
[2022-02-28 23:00] VITALS: BP 153/76
[2022-03-01] MEDS: HYDROmorphone 2 MG/ML INJ. IVP PRN ×3 (00:05→17:23)
[2022-03-01] MEDS: PIPERACILLIN/TAZOBACTAM 3.375 GM in IV NORMAL SALINE 50ML 50 ML IV SCH ×5 (01:22→23:54)
[2022-03-01] MEDS: IV NORMAL SALINE 1000ML BAG 1,000 ML IV SCH ×3 (01:25→23:56)
[2022-03-01 03:00] VITALS: BP 142/72
[2022-03-01 07:00] VITALS: BP 140/73
--- NOTE | 2022-03-01 08:28 | RAD ---
CT ABDOMEN+PELVIS W History: Follow-up questionable diverticulitis. Comparison: 02/23/2022, 03/14/2020 Technique: CT abdomen and pelvis with intravenous and oral contrast. Findings: Trace right pleural. Bilateral dependent changes with atelectatic change obscuring previously describ ed left lower lobe nodule. Coronary artery calcifications. The liver is unremarkable. Status post cholecystectomy. The pancreas, spleen, and adrenal glands are unremarkable. There is no mild left hydronephrosis and proximal hydroureter. No nephroureterolithiasi s is identified. Small hiatal hernia versus patulous distal esophagus. The stomach is otherwise unremarkable. The smal l bowel is within normal limits. No evidence of obstruction. There is redemonstrated distal descendin g and sigmoid diverticulosis with long segment wall thickening of the sigmoid colon with mild adjacen t inflammatory changes. No free air. There is a small peripherally enhancing collection in the left p elvic sidewall which approaches fluid attenuation however slightly greater measuring 2.1 x 1.0 x 1.2 cm (axial image 60, coronal image 30). There is stranding of the pelvic mesenteric fat without free f luid identified. The bladder is relatively decompressed with resultant wall thickening. Unremarkable prostate. Atheros clerotic calcifications aorta and iliac arteries. No aneurysm. No adenopathy. Degenerative changes of the bilateral hips and multilevel disc disease in the lumbar spine. Impression: 1. Redemonstrated diverticulosis and wall thickening involving the sigmoid colon with new left pelvi c peripherally enhancing collection measuring 2.1 x 1.0 x 1.2 cm which is concerning for phlegmon or developing abscess. This likely is due to diverticulitis however colitis and sigmoid mass are not exc luded. 2. New mild left hydronephrosis and proximal hydroureter. No nephroureterolithiasis identified. 3. Status post cholecystectomy. 4. Trace right pleural effusion and bibasilar atelectasis which obscure posterior left lower lobe no dule. ------ Exposure: One or more of the following individualized dose reduction techniques were utilized for thi s examination: 1. Automated exposure control 2. Adjustment of the mA and/or kV according to patient size 3. Use of iterative reconstruction technique. Electronically signed by: Luis Randolph MD (03/01/2022 8:26 AM) [id number]
[2022-03-01] MEDS: PANTOPRAZOLE IV PUSH 40 MG VIAL. IVP SCH (08:52)
[2022-03-01] MEDS: TAMSULOSIN 0.4 MG CAP.ER.24H. PO SCH (08:52)
--- NOTE | 2022-03-01 09:09 | PDOC ---
GONZALO GILMORE APRN 03/01/22 0909: SURGICAL PROGRESS NOTE DATE: 03/01/22 TIME: 09:07 Subjective upset, waiting since yesterday for Ct results thought was going home does still require frequent IV medication for pain no real improvement ROS: no fevers, chills no CP, palpations no SOA, cough Vital Signs Vital Signs Date Time Temp Pulse Resp B/P (MAP) Pulse Ox O2 Delivery O2 Flow Rate FiO2 03/01/22 08:53 94 Room Air 4.0 03/01/22 07:00 97.6 54 20 140/73 (95) 97.6 I&O Intake and Output 03/01/22 07:00 Intake Total 1570 ml Balance 1570 ml Intake Oral 1470 ml IV Total 100 ml # Voids 4 # Bowel Movements 1 General: Alert, Oriented X3, Cooperative Lungs: Normal air movement Heart: Regular rate, Normal S1, Normal S2 Abdomen: Soft, Other (mildly ttp lower abdomen, nondistended ) Assessment/Plan ct reviewed will ask ir if can drain abscess continue abx will have Dr Shanelle KEN Justicifation of Admission Dx: Justifications for Admission: Justification of Admission Dx: Yes HAZEL BREWER MD 03/01/22 1055: SURGICAL PROGRESS NOTE Assessment/Plan Pt seen and examined. Agree with Ms. Gilmore's note Pt with c/o some pain, but able to sleep last night, passed liquid stool last night abd soft, Nd, NTTP will try soft diet unlikely to be able to drain if not improved, may need to consider casas's procedure. GONZALO GILMORE APRN March 01, 2022 09:09 HAZEL BREWER MD March 01, 2022 10:55
[2022-03-01 11:00] VITALS: BP 132/66
--- NOTE | 2022-03-01 11:50 | PDOC ---
[employer] PROGRESS NOTE Date of Service DOS: DATE: 03/01/22 TIME: 11:47 Chief Complaint Chief Complaint Acute diverticulitis History of diverticulosis Tobacco use Hold off on TPN as patient does not wish to pursue this route and would like to try the conservative method of rechallenge eating a soft diet Continue IV antibiotics Continue IV fluids Pending repeat interval CT scan --> likely developing abscess but in terms of position unlikely be able to drain per surgical note. May need more extensive procedure if does not improve. Advancing to GI soft diet. History of Present Illness History of Present Illness 71-year-old male with history of diverticulosis, BPH, chronic pain and arthritis who comes in with diverticulitis. Transferred from [facility] for general surgery consult. Admitted for further care and IV antibiotics. 02/24/2022 No acute events overnight. Patient seen examined bedside. AF and VSS. Abdominal exam is benign. Patient is passing flatus no bowel movement. We will try small mount of clears. Awaiting general surgery evaluation. Continue with IV antibiotics and IV fluids. Patient's chart, labs, images were reviewed and discussed with RN 02/25/2022 No acute events overnight. Patient seen examined bedside. This morning had some more lower abdominal pain that was cramping in nature. This happened after he had some soft diet. I have transitioned back to clear liquid diet. Pending general surgery evaluation. Continued IV fluids and IV antibiotics. Patient endorses only passing some flatus and no bowel movement. Patient's chart, labs, images were reviewed and discussed with RN 02/26/22 No acute events overnight. Pt is now NPO due to having increase ABD pain with soft GI diet. GI recommended to start with TPN and bowel rest. Pt refusing at this time and still drinking his sweet tea. At this time he is still having ABD pain and has not had a BM. He is passing some flatus. Will continue to monitor and await for his decision for parenteral nutrition. 02/27/22 No acute events overnight. Patient seen examined bedside. Pain is improved and patient has passed significant amount of gas compared to yesterday. Mild left lower quadrant pain. Patient's chart, labs, images were reviewed and discussed with RN 02/28/2022 No acute events overnight patient being seen examined bedside. Not feeling better and upset because there is no definitive plan. Pending CT scan of the abdomen pelvis today. Patient's chart, labs, images were reviewed and discussed with RN 03/01 Evaluated examined at bedside. CT scan showed concern for abscess but unable to drain. Continue IV antibiotics. Reporting quite a bit of pain still requiring frequent pain meds. Surgical recommendations reviewed. GI soft diet today. May need more extensive surgical intervention in the near future. Discussed with bedside RN. Vitals/I&O Vitals/I&O: Vital Signs Date Time Temp Pulse Resp B/P (MAP) Pulse Ox O2 Delivery O2 Flow Rate FiO2 03/01/22 11:00 97.8 65 18 132/66 (88) 95 Room Air 97.8 03/01/22 08:53 4.0 I & O 02/28/22 02/28/22 03/01/22 15:00 23:00 07:00 Intake Total 480 ml 540 ml 550 ml Balance 480 ml 540 ml 550 ml Physical Exam General: Alert, Oriented X3, Cooperative Heart: Regular rate, Normal S1, Normal S2 Lungs: Clear Abdomen: Soft, Other (mildly ttp lower abdomen, nondistended ) Extremities: No clubbing Skin: No rashes, No breakdown Comment Review of Relevant I have reviewed the following items ramona (where applicable) has been applied. Justifications for Admission Other Justification CMAELIA MANNING MD March 01, 2022 11:50
--- NOTE | 2022-03-01 13:20 | PDOC ---
Date of Service: DATE: 03/01/22 TIME: 13:12 Objective: Objective: Reviewed surgery note and d/w Shira this morning: Has stooled. Checked w/ IR - too small to drain. Trying soft diet. May need to consider surgery if not improved. On IV atbx, declined PICC/TPN last week. Last labs 02/27 - normal WBC. D/w nursing - received Dilaudid earlier, has been resting. Vital Signs: Vital Signs Date Time Temp Pulse Resp B/P (MAP) Pulse Ox O2 Delivery O2 Flow Rate FiO2 03/01/22 11:00 97.8 65 18 132/66 (88) 95 Room Air 97.8 03/01/22 08:53 4.0 Imaging: CT A/P 03/01 Impression: 1. Redemonstrated diverticulosis and wall thickening involving the sigmoid colon with new left pelvic peripherally enhancing collection measuring 2.1 x 1.0 x 1.2 cm which is concerning for phlegmon or developing abscess. This likely is due to diverticulitis however colitis and sigmoid mass are not excluded. 2. New mild left hydronephrosis and proximal hydroureter. No nephroureterolithiasis identified. 3. Status post cholecystectomy. 4. Trace right pleural effusion and bibasilar atelectasis which obscure posterior left lower lobe nodule. PE: GEN: sleeping, not awakened A/P: Recurrent diverticulitis - interval CT as above, concerning for phlegmon/develo ping abscess -- Surgery following, await response to diet. Justicifation of Admission Dx: Justifications for Admission: Justification of Admission Dx: Yes SAMANTA THOMPSON March 01, 2022 13:20
[2022-03-01 18:49] VITALS: BP 147/68
[2022-03-01 23:00] VITALS: BP 125/64
[2022-03-01 23:08] VITALS: BP 125/64
[2022-03-02] MEDS: HYDROcodone/APAP 5/325MG 1 TAB TABLET PO PRN ×3 (03:25→19:46)
[2022-03-02] MEDS: PIPERACILLIN/TAZOBACTAM 3.375 GM in IV NORMAL SALINE 50ML 50 ML IV SCH ×4 (05:49→23:36)
[2022-03-02 07:00] VITALS: BP 138/77
[2022-03-02] MEDS: PANTOPRAZOLE IV PUSH 40 MG VIAL. IVP SCH (09:25)
[2022-03-02] MEDS: TAMSULOSIN 0.4 MG CAP.ER.24H. PO SCH (09:26)
--- NOTE | 2022-03-02 09:46 | PDOC ---
Date of Service: DATE: 03/02/22 TIME: 09:43 Objective: Objective: D/w nurse - ate 50% of breakfast (GI soft), c/o some abdominal pain and said he needed to use the restroom. Vital Signs: Vital Signs Date Time Temp Pulse Resp B/P (MAP) Pulse Ox O2 Delivery O2 Flow Rate FiO2 03/02/22 09:26 Room Air 03/02/22 07:00 97.9 44 18 138/77 (97) 93 97.9 03/01/22 17:59 4.0 PE: GEN: attempted to see twice - was in restroom A/P: Recurrent diverticulitis w/ phlegmon/abscess - too small to reach for drain per IR, surgery following -- In restroom this morning, will follow-up later. Justicifation of Admission Dx: Justifications for Admission: Justification of Admission Dx: Yes SAMANTA THOMPSON March 02, 2022 09:46
[2022-03-02] MEDS: HYDROmorphone 2 MG/ML INJ. IVP PRN (10:42)
[2022-03-02 11:00] VITALS: BP 142/88
[2022-03-02] MEDS: IV NORMAL SALINE 1000ML BAG 1,000 ML IV SCH (12:09)
--- NOTE | 2022-03-02 14:24 | PDOC ---
[employer] PROGRESS NOTE Date of Service DOS: DATE: 03/02/22 TIME: 14:23 Chief Complaint Chief Complaint Acute diverticulitis History of diverticulosis Tobacco use Hold off on TPN as patient does not wish to pursue this route and would like to try the conservative method of rechallenge eating a soft diet Continue IV antibiotics Continue IV fluids Pending repeat interval CT scan --> likely developing abscess but in terms of position unlikely be able to drain per surgical note. May need more extensive procedure if does not improve. Advancing to GI soft diet. History of Present Illness History of Present Illness 71-year-old male with history of diverticulosis, BPH, chronic pain and arthritis who comes in with diverticulitis. Transferred from [facility] for general surgery consult. Admitted for further care and IV antibiotics. 02/24/2022 No acute events overnight. Patient seen examined bedside. AF and VSS. Abdominal exam is benign. Patient is passing flatus no bowel movement. We will try small mount of clears. Awaiting general surgery evaluation. Continue with IV antibiotics and IV fluids. Patient's chart, labs, images were reviewed and discussed with RN 02/25/2022 No acute events overnight. Patient seen examined bedside. This morning had some more lower abdominal pain that was cramping in nature. This happened after he had some soft diet. I have transitioned back to clear liquid diet. Pending general surgery evaluation. Continued IV fluids and IV antibiotics. Patient endorses only passing some flatus and no bowel movement. Patient's chart, labs, images were reviewed and discussed with RN 02/26/22 No acute events overnight. Pt is now NPO due to having increase ABD pain with soft GI diet. GI recommended to start with TPN and bowel rest. Pt refusing at this time and still drinking his sweet tea. At this time he is still having ABD pain and has not had a BM. He is passing some flatus. Will continue to monitor and await for his decision for parenteral nutrition. 02/27/22 No acute events overnight. Patient seen examined bedside. Pain is improved and patient has passed significant amount of gas compared to yesterday. Mild left lower quadrant pain. Patient's chart, labs, images were reviewed and discussed with RN 02/28/2022 No acute events overnight patient being seen examined bedside. Not feeling better and upset because there is no definitive plan. Pending CT scan of the abdomen pelvis today. Patient's chart, labs, images were reviewed and discussed with RN 03/01 Evaluated examined at bedside. CT scan showed concern for abscess but unable to drain. Continue IV antibiotics. Reporting quite a bit of pain still requiring frequent pain meds. Surgical recommendations reviewed. GI soft diet today. May need more extensive surgical intervention in the near future. Discussed with bedside RN. 03/02 Evaluated examined at bedside. Still having abdominal pain but did eat more breakfast and lunch today. Advancing diet. As needed pain control. Continue antibiotics. Discussed with surgical team. GI recommendations reviewed. Discussed with bedside RN. Vitals/I&O Vitals/I&O: Vital Signs Date Time Temp Pulse Resp B/P (MAP) Pulse Ox O2 Delivery O2 Flow Rate FiO2 03/02/22 11:24 Room Air 03/02/22 11:00 97.4 53 18 142/88 (106) 96 97.4 03/01/22 17:59 4.0 I & O 03/01/22 03/01/22 03/02/22 15:00 23:00 07:00 Intake Total 480 ml 240 ml Balance 480 ml 240 ml Physical Exam General: Alert, Oriented X3, Cooperative Heart: Regular rate, Normal S1, Normal S2 Lungs: Clear Abdomen: Soft, Other (mildly ttp lower abdomen, nondistended ) Extremities: No clubbing Skin: No rashes, No breakdown Comment Review of Relevant I have reviewed the following items ramona (where applicable) has been applied. Justifications for Admission Other Justification CAMELIA MANNING MD March 02, 2022 14:24
[2022-03-02] MEDS: LACTOBACILLUS RHAMNOSUS GG 1 CAPSULE. PO SCH ×3 (14:33→19:52)
[2022-03-02 15:00] VITALS: BP 139/73
--- NOTE | 2022-03-02 15:44 | NUR ---
SS following up with discharge planning. SS reviewed pt chart and discussed with pt RN. Pt is currently on room air. GI and Surgery following. Pt on IV Zosyn. SS will continue to follow for discharge planning.
[2022-03-02] MEDS: SENNOSIDES 8.6 MG TABLET PO PRN (15:50)
--- NOTE | 2022-03-02 16:41 | PDOC ---
SURGICAL PROGRESS NOTE DATE: 03/02/22 TIME: 16:38 Subjective Pt with c/o back pain, melva some PO, no N/V, passing flatus, thinks he is about to have stool Vital Signs Vital Signs Date Time Temp Pulse Resp B/P (MAP) Pulse Ox O2 Delivery O2 Flow Rate FiO2 03/02/22 15:00 97.9 48 18 139/73 (95) 94 Room Air 97.9 03/01/22 17:59 4.0 I&O Intake and Output 03/02/22 07:00 Intake Total 720 ml Balance 720 ml Intake Oral 720 ml General: Alert, Oriented X3, Cooperative, No acute distress HEENT: Atraumatic Abdomen: Soft, No tenderness, No masses Problem List diverticulitis appears to melva diet, passing flatus resolution of WBC OK to work towards d/c on PO abx d/w pt's on phone Justicifation of Admission Dx: Justifications for Admission: Justification of Admission Dx: Yes HAZEL BREWER MD March 02, 2022 16:41
[2022-03-02 19:40] VITALS: BP 139/79
[2022-03-02 23:25] VITALS: BP 138/80
[2022-03-03] MEDS: IV NORMAL SALINE 1000ML BAG 1,000 ML IV SCH (01:40)
[2022-03-03] MEDS: PIPERACILLIN/TAZOBACTAM 3.375 GM in IV NORMAL SALINE 50ML 50 ML IV SCH (06:06)
[2022-03-03 07:00] VITALS: BP 169/85
[2022-03-03] MEDS: HYDROcodone/APAP 5/325MG 1 TAB TABLET PO PRN (08:57)
[2022-03-03] MEDS: TAMSULOSIN 0.4 MG CAP.ER.24H. PO SCH (08:57)
[2022-03-03] MEDS: LACTOBACILLUS RHAMNOSUS GG 1 CAPSULE. PO SCH (08:57)
[2022-03-03] MEDS: PANTOPRAZOLE IV PUSH 40 MG VIAL. IVP SCH (08:57)
--- NOTE | 2022-03-03 09:13 | PDOC ---
Date of Service: DATE: 03/03/22 TIME: 09:10 Subjective: Subjective: Didn't sleep well but says didn't get pain meds or sleeping pill. Passing gas, no stool for a few days. Wants to go home. Hasn't eaten breakfast yet, ate some yesterday. Objective: Vital Signs: Vital Signs Date Time Temp Pulse Resp B/P (MAP) Pulse Ox O2 Delivery O2 Flow Rate FiO2 03/03/22 08:57 Room Air 03/03/22 07:00 97.5 48 20 169/85 (113) 93 97.5 PE: GEN: NAD LUNGS: CTAB HEART: RRR ABD: quiet BS, non-distended, mild discomfort LLQ/suprapubic NEURO/PSYCH: A & O 3, more calm today A/P: Recurrent diverticulitis w/ possible phlegmon/abscess - unable to drain, declined PICC/TPN, taking some PO, remains on atbx -- Stable. Continue per surgery/primary. Justicifation of Admission Dx: Justifications for Admission: Justification of Admission Dx: Yes SAMANTA THOMPSON March 03, 2022 09:13
[2022-03-03] MEDS ORDERED: metroNIDAZOLE 500 MG TABLET PO SCH (09:30)
[2022-03-03] MEDS ORDERED: CIPROFLOXACIN HCL 250 MG TABLET. PO SCH (09:30)
--- NOTE | 2022-03-03 09:36 | PDOC ---
SURGICAL PROGRESS NOTE DATE: 03/03/22 TIME: 09:34 Subjective rough night, could not get comfortable did not sleep well thinks will be better once home taking some to eat, still low appetite ROS: no fevers, chills no chest pain, palpations no cough, SOA Vital Signs Vital Signs Date Time Temp Pulse Resp B/P (MAP) Pulse Ox O2 Delivery O2 Flow Rate FiO2 03/03/22 08:57 Room Air 03/03/22 07:00 97.5 48 20 169/85 (113) 93 97.5 I&O Intake and Output 03/03/22 07:00 Intake Total 50 ml Output Total 501 ml Balance -451 ml IV Total 50 ml Output Urine Total 501 ml General: Alert, Cooperative HEENT: Atraumatic, Mucous membr. moist/pink Lungs: Normal air movement Abdomen: Soft, Other (mild ttp lower abdomen) Problem List d/w IPC transition to oral abx work toward dc home Justicifation of Admission Dx: Justifications for Admission: Justification of Admission Dx: Yes GONZALO [employer] March 03, 2022 09:36
[2022-03-03] MEDS ORDERED: METR-34 PO (10:41)
[2022-03-03] MEDS ORDERED: HYDR-2761 PO (10:41)
[2022-03-03] MEDS ORDERED: CIPR250T30 PO (10:41)
[2022-03-03 11:00] VITALS: BP 140/72
--- NOTE | 2022-03-03 11:58 | NUR ---
SS following up with discharge planning. SS reviewed pt chart and discussed with pt RN. Pt is currently on room air. PO medications. Discharge plan is currently to home when medically ready for discharge. SS will continue to follow for discharge planning.
--- NOTE | 2022-03-03 13:55 | NUR ---
Discharge Note: [facility] Discharge instructions and discharge home medications reviewed with Patient and a copy given. All questions have been answered and understanding verbalized. The following instructions and handouts were given: f/u with PCP within two weeks Discontinued lines and drains: Peripheral IV intact. Patient discharged to Home or Self Care with Spouse via [facility]
--- NOTE | 2022-03-03 16:09 | PDOC3 ---
[facility]-Discharge Summary Date of Admission: Date of Admission: February 23, 2022 Date of Discharge: Date of Discharge: March 03, 2022 Admission Diagnosis: Admitting Diagnosis: diverticulitis perforated, intraabdominal abscess Consults: Consults: surgery, GI Hospital Course: Hospital Course: Chief Complaint Acute diverticulitis History of diverticulosis Tobacco use Hold off on TPN as patient does not wish to pursue this route and would like to try the conservative method of rechallenge eating a soft diet Continue IV antibiotics Continue IV fluids Pending repeat interval CT scan --> likely developing abscess but in terms of position unlikely be able to drain per surgical note. May need more extensive procedure if does not improve. Advancing to GI soft diet. History of Present Illness History of Present Illness 71-year-old male with history of diverticulosis, BPH, chronic pain and arthritis who comes in with diverticulitis. Transferred from [facility] for general surgery consult. Admitted for further care and IV antibiotics. 02/24/2022 No acute events overnight. Patient seen examined bedside. AF and VSS. Abdominal exam is benign. Patient is passing flatus no bowel movement. We will try small mount of clears. Awaiting general surgery evaluation. Continue with IV antibiotics and IV fluids. Patient's chart, labs, images were reviewed and discussed with RN 02/25/2022 No acute events overnight. Patient seen examined bedside. This morning had some more lower abdominal pain that was cramping in nature. This happened after he had some soft diet. I have transitioned back to clear liquid diet. Pending general surgery evaluation. Continued IV fluids and IV antibiotics. Patient endorses only passing some flatus and no bowel movement. Patient's chart, labs, images were reviewed and discussed with RN 02/26/22 No acute events overnight. Pt is now NPO due to having increase ABD pain with soft GI diet. GI recommended to start with TPN and bowel rest. Pt refusing at this time and still drinking his sweet tea. At this time he is still having ABD pain and has not had a BM. He is passing some flatus. Will continue to monitor and await for his decision for parenteral nutrition. 02/27/22 No acute events overnight. Patient seen examined bedside. Pain is improved and patient has passed significant amount of gas compared to yesterday. Mild left lower quadrant pain. Patient's chart, labs, images were reviewed and discussed with RN 02/28/2022 No acute events overnight patient being seen examined bedside. Not feeling better and upset because there is no definitive plan. Pending CT scan of the abdomen pelvis today. Patient's chart, labs, images were reviewed and discussed with RN 03/01 Evaluated examined at bedside. CT scan showed concern for abscess but unable to drain. Continue IV antibiotics. Reporting quite a bit of pain still requiring frequent pain meds. Surgical recommendations reviewed. GI soft diet today. May need more extensive surgical intervention in the near future. Discussed with bedside RN. 03/02 Evaluated examined at bedside. Still having abdominal pain but did eat more breakfast and lunch today. Advancing diet. As needed pain control. Continue antibiotics. Discussed with surgical team. GI recommendations reviewed. Discussed with bedside RN. 03/03 Patient evaluated examined at bedside. Improving quite a bit tolerating p.o. intake. Pain improving as well. We will switch antibiotics to orals and discharge home today. Greater than 30 minutes spent on discharge. 20 minutes advance care planning. Disposition: Disposition/Orders: D/C to Home Activity: Activity: Resume previous activity Diet: Diet: Cardiac Medications: Home Meds Active Scripts Hydrocodone Bit/Acetaminophen (HYDROCODONE-APAP 5-325 ) 1 Tab Tablet, 1 TAB PO PRN Q4HRS PRN for MODERATE PAIN for 10 Days, #30 TAB Prov:CAMELIA MANNING MD 03/03/22 Metronidazole (METRONIDAZOLE) 500 Mg Tablet, 500 MG PO Q8HRS for infection for 10 Days, #30 TAB Prov:CAMELIA MANNING MD 03/03/22 Ciprofloxacin Hcl (CIPRO) 250 Mg Tablet, 500 MG PO BID for infection for 10 Days, #40 TAB Prov:CAMELIA MANNING MD 03/03/22 Reported Medications Docusate Sodium (COLACE) 100 Mg Capsule, 1 CAP PO BID for constipation for 30 Days, #60 CAP 0 Refills 05/26/21 Hydrocodone Bit/Acetaminophen (HYDROCODONE-APAP 5-325 ) 1 Tab Tablet, 1 TAB PO PRN PRN for PAIN, TAB 0 Refills 05/26/21 Multivitamin (MULTIPLE VITAMINS) 1 Each Tablet, 1 TAB PO DAILY for suppliment for 30 Days, #30 TAB 0 Refills 05/25/21 Pantoprazole Sodium (PROTONIX) 20 Mg Tablet.dr, 20 MG PO DAILY for GERD, TAB 6/16/21 Etanercept (Enbrel) 25 Mg/0.5 Ml Vial, 25 MG SQ WEEKLY for RA, EACH 04/01/21 Tamsulosin Hcl (FLOMAX) 0.4 Mg Cap.er.24h, 0.4 MG PO DAILY for BPH, TAB 04/01/21 Discontinued Reported Medications Famotidine (PEPCID) 40 Mg Tablet, 40 MG PO HS for GERD, TAB 04/01/21 Scheduled Ciprofloxacin Hcl (Cipro), 500 MG PO BID Docusate Sodium (Colace), 1 CAP PO BID, (Reported) Etanercept (Enbrel), 25 MG SQ WEEKLY, (Reported) Metronidazole (Metronidazole), 500 MG PO Q8HRS Multivitamin (Multiple Vitamins), 1 TAB PO DAILY, (Reported) Pantoprazole Sodium (Protonix), 20 MG PO DAILY, (Reported) Tamsulosin Hcl (Flomax), 0.4 MG PO DAILY, (Reported) Scheduled PRN Hydrocodone Bit/Acetaminophen (Hydrocodone-Apap 5-325 ), 1 TAB PO PRN PRN for PAIN, (Reported) Hydrocodone Bit/Acetaminophen (Hydrocodone-Apap 5-325 ), 1 TAB PO PRN Q4HRS PRN for MODERATE PAIN Discontinued Medications Famotidine (Pepcid), 40 MG PO HS, (Reported) Justicifation of Admission Dx: Justifications for Admission: Justification of Admission Dx: Yes CAMELIA MANNING MD March 03, 2022 16:09
[2022-03-04] MEDS ORDERED: PANTOPRAZOLE 40 MG TABLET.DR. PO SCH (07:30)
== END 2022-03-03 13:55 | disposition home or self-care (01) | DRG 392 ==
LOC: 5 NORTH 20:05
PROVIDERS: ADMIT Internal Medicine; ATTEND Internal Medicine
DX: K57.20 Diverticulitis of large intestine with perforation and abscess without bleeding (principal); N13.30 Unspecified hydronephrosis; F17.210 Nicotine dependence, cigarettes, uncomplicated; M06.9 Rheumatoid arthritis, unspecified; N40.0 Benign prostatic hyperplasia without lower urinary tract symptoms; Z83.3 Family history of diabetes mellitus; Z85.51 Personal history of malignant neoplasm of bladder; Z90.49 Acquired absence of other specified parts of digestive tract; G89.29 Other chronic pain; K21.9 Gastro-esophageal reflux disease without esophagitis; K59.00 Constipation, unspecified; M19.90 Unspecified osteoarthritis, unspecified site; Z88.0 Allergy status to penicillin
CPT/HCPCS: 36415; 74177; 80048; 83735; 84100; 85025; 85610; C9113; J1170; J1200; J2060; J2543; J7030; Q9966; Q9967; G0378; Q0163